=== PATIENT | female | born 1940 | race Caucasian/White ===

== ENCOUNTER 2016-12-22 14:23 | Outpatient (CLI) | payer MEDICARE, MEDICAID ==
[2016-12-22 13:38] LABS: BASOPHILS % (AUTO) 0.3 %; EOSINOPHILS # (AUTO) 0.4 10^3/uL (0.0-0.7); EOSINOPHILS % (AUTO) 5.5 %; HCT - HEMATOCRIT 35.2 % (37.0-47.0); HGB - HEMOGLOBIN 11.5 g/dL (12.0-16.0); LYMPHOCYTES # (AUTO) 1.9 10^3/uL (1.5-3.5); LYMPHOCYTES % (AUTO) 27.1 %; MEAN CORPUSCULAR HEMOGLOBIN 28.8 pg (27.0-31.0); MEAN CORPUSCULAR HGB CONC 32.7 g/dL (32.0-36.0); MEAN PLATELET VOLUME 11.1 fL (7.9-10.8); MONOCYTES # (AUTO) 0.6 10^3/uL (0.0-1.0); MONOCYTES % (AUTO) 8.3 %; NEUTROPHILS # (AUTO) 4.2 10^3/uL (1.5-6.6); NEUTROPHILS % (AUTO) 58.8 %; NUCLEATED RED BLOOD CELLS AUTO 0.1 /100WBC; RED CELL DISTRIBUTION WIDTH 13.8 % (12.0-15.0); UNCORRECTED WHITE BLOOD COUNT 7.1 x10^3/uL; WHITE BLOOD COUNT 7.1 x10^3/uL (4.8-10.8)
[2016-12-22 14:07] LABS: ALBUMIN/GLOBULIN RATIO 1.1 (1.0-2.2); BILIRUBIN,TOTAL 0.7 mg/dL (0.2-1.0); BUN - BLOOD UREA NITROGEN 13 mg/dL (6-20); CALCIUM 9.7 mg/dL (8.5-10.3); CARBON DIOXIDE - CO2 25 mmol/L (21-32); CHLORIDE 105 mmol/L (101-111); CHOL/HDL RATIO 4.7 (<4.4); CHOLESTEROL 201 mg/dL; CREATININE 1.3 mg/dL (0.4-1.0); GFR - MDRD 40 (>89); GLUCOSE 95 mg/dL (70-100); HDL CHOLESTEROL 43 mg/dL; POTASSIUM 4.4 mmol/L (3.5-5.0); SODIUM 138 mmol/L (135-145); TOTAL PROTEIN 7.4 g/dL (6.7-8.2); TRIGLYCERIDES 145 mg/dL; VLDL CHOLESTEROL 29 mg/dL
== END 2016-12-22 14:24 | disposition home or self-care (01) ==
LOC: LAB.R 14:23
PROVIDERS: ATTEND Internal Medicine
DX: E53.8 Deficiency of other specified B group vitamins (principal); J30.9 Allergic rhinitis, unspecified; M81.0 Age-related osteoporosis without current pathological fracture; E78.5 Hyperlipidemia, unspecified; R94.5 Abnormal results of liver function studies; I10 Essential (primary) hypertension
CPT/HCPCS: 80053; 80061; 84443; 85025

== ENCOUNTER → 2018-01-05 | Outpatient (CLI) | payer MEDICARE, MEDICAID ==
[2018-01-05 14:20] LABS: BASOPHILS # (AUTO) 0.1 10^3/uL (0.0-0.1); EOSINOPHILS # (AUTO) 0.3 10^3/uL (0.0-0.7); EOSINOPHILS % (AUTO) 4.7 %; HGB - HEMOGLOBIN 11.1 g/dL (12.0-16.0); LYMPHOCYTES # (AUTO) 1.3 10^3/uL (1.5-3.5); LYMPHOCYTES % (AUTO) 17.9 %; MEAN CORPUSCULAR HGB CONC 33.2 g/dL (32.0-36.0); MEAN CORPUSCULAR VOLUME 90.2 fL (81.0-99.0); MEAN PLATELET VOLUME 11.3 fL (7.9-10.8); MONOCYTES # (AUTO) 0.6 10^3/uL (0.0-1.0); MONOCYTES % (AUTO) 8.6 %; NEUTROPHILS % (AUTO) 67.8 %; PLT - PLATELET COUNT 222 10^3/uL (130-450); RED BLOOD COUNT 3.72 10^6/uL (4.20-5.40); RED CELL DISTRIBUTION WIDTH 14.1 % (12.0-15.0); WHITE BLOOD COUNT 7.4 x10^3/uL (4.8-10.8)
[2018-01-05 14:49] LABS: ALBUMIN 3.3 g/dL (3.2-5.5); ALBUMIN/GLOBULIN RATIO 0.9 (1.0-2.2); ALKALINE PHOSPHATASE 66 IU/L (42-121); ALT ALANINE AMINOTRANSFERASE 12 IU/L (10-60); AST ASPARTATE AMINOTRANSFERASE 19 IU/L (10-42); BUN - BLOOD UREA NITROGEN 17 mg/dL (6-20); CALCIUM 9.1 mg/dL (8.5-10.3); CARBON DIOXIDE - CO2 25 mmol/L (21-32); CHLORIDE 105 mmol/L (101-111); CHOLESTEROL 190 mg/dL; CREATININE 1.4 mg/dL (0.4-1.0); GFR - MDRD 37 (>89); GLUCOSE 100 mg/dL (70-100); HDL CHOLESTEROL 47 mg/dL; LDL CHOLESTEROL,CALCULATED 122 mg/dL; LDL/HDL RATIO 2.6 (<4.4); SODIUM 141 mmol/L (135-145); TOTAL PROTEIN 7.1 g/dL (6.7-8.2); VLDL CHOLESTEROL 21 mg/dL
== END ==
LOC: LAB.N 08:43
PROVIDERS: ATTEND Internal Medicine
DX: E53.8 Deficiency of other specified B group vitamins (principal); E78.5 Hyperlipidemia, unspecified; R94.5 Abnormal results of liver function studies
CPT/HCPCS: 36415; 80053; 80061; 83721; 84443; 85025

== ENCOUNTER 2018-01-24 10:14 | Outpatient (CLI) | payer MEDICARE, MEDICAID ==
--- NOTE | 2018-01-25 09:16 | Mammography Report ---
Reason: SCREENING MAMMO Procedure Date: 01/24/2018 Accession Number: [id number] / [id number] Procedure: MGN - Screening Mammo Dig Bilat CPT Code: FULL RESULT: EXAM: Screening Mammo Dig Bilat DATE: 01/24/2018 10:38 AM CLINICAL HISTORY: 77 year-old nulliparous female presents for screening. TECHNIQUE: Bilateral CC and MLO views were obtained. COMPARISON: 01/28/2016, 01/17/2014, 01/05/2014. FINDINGS: The breasts demonstrate scattered fibroglandular densities bilaterally. Typically benign vascular calcifications are identified bilaterally. No suspicious masses, clustered microcalcifications, or regions of architectural distortion are identified. IMPRESSION: Benign findings RECOMMENDATION: Routine annual screening unless otherwise clinically indicated. BIRADS CATEGORY 2: Benign findings STANDARD QUALIFYING STATEMENTS: 1. This examination was reviewed with the aid of Computer-Aided Detection (CAD). 2. A negative or benign imaging report should not delay biopsy if clinically suspicious findings are present. Consider surgical consultation if warranted. More than 5% of cancers are not identified by imaging. 3. Dense breasts may obscure an underlying neoplasm. 4. This examination was reviewed without the aid of 3D breast imaging (tomosynthesis).
== END 2018-01-24 10:15 | disposition home or self-care (01) ==
LOC: DI.N 10:14
PROVIDERS: ATTEND Internal Medicine
DX: Z12.31 Encounter for screening mammogram for malignant neoplasm of breast (principal)
CPT/HCPCS: 77067

== ENCOUNTER 2018-01-26 08:23 | Outpatient (CLI) | payer MEDICARE, MEDICAID ==
[2018-01-26 13:14] LABS: FERRITIN 21.6 ng/mL (11.0-306.8)
[2018-01-26 14:33] LABS: RED BLOOD COUNT 3.74 10^6/uL (4.20-5.40)
== END 2018-01-26 08:24 | disposition home or self-care (01) ==
LOC: LAB.N 08:23
PROVIDERS: ATTEND Internal Medicine
DX: D64.9 Anemia, unspecified (principal)
CPT/HCPCS: 36415; 82607; 82728; 83010; 85044; 86880

== ENCOUNTER 2020-07-30 11:05 | Outpatient (CLI) | payer MEDICARE, MEDICAID ==
--- NOTE | 2020-08-01 07:03 | Mammography Report ---
BILATERAL DIGITAL SCREENING MAMMOGRAM 3D/2D: 07/30/2020 CLINICAL: Routine screening. Comparison: 01/24/2018, 01/28/2016, 01/05/2014. There are scattered fibroglandular elements in both breasts. No significant masses, calcifications, or other findings are seen in either breast. IMPRESSION: NEGATIVE There is no mammographic evidence of malignancy. A 1 year screening mammogram is recommended. This exam was interpreted at Station ID: [id number]. NOTE: For mammograms, a report in lay terms will be sent to the patient. Approximately 15% of breast malignancies will not be visualized mammographically. In the management of a palpable breast mass, a negative mammogram must not discourage biopsy of a clinically suspicious lesion. Electronically Signed By: Gucci Davalos M.D. aty/:07/30/2020 14:22:57 ACR BI-RADS Category 1: Negative 3341F PARENCHYMAL PATTERN: (A) - The breast(s) demonstrate(s) scattered fibroglandular densities. BI-RADS CATEGORY: (1) - 1 RECOMMENDATION: (ANNUAL) - Recommend routine annual screening mammography. [id number] 1 year screening LATERALITY: (B)
== END 2020-07-30 11:06 | disposition home or self-care (01) ==
LOC: DI 11:05
DX: Z12.31 Encounter for screening mammogram for malignant neoplasm of breast (principal)

== ENCOUNTER 2020-08-08 12:18 | Inpatient (IN) | payer MEDICARE, MEDICAID ==
[2020-08-08] MEDS ORDERED: ASPIRIN CHEW 81 MG TABLET PO STA (13:00)
[2020-08-08] MEDS ORDERED: IOVERSOL 320 100 ML VIAL IVP ONE ×2 (13:08→14:37)
[2020-08-08 13:21] LABS: BASOPHILS # (AUTO) 0.1 10^3/uL (0.0-0.1); EOSINOPHILS # (AUTO) 0.2 10^3/uL (0.0-0.7); EOSINOPHILS % (AUTO) 2.5 %; HCT - HEMATOCRIT 30.8 % (37.0-47.0); HGB - HEMOGLOBIN 9.5 g/dL (12.0-16.0); LYMPHOCYTES # (AUTO) 1.4 10^3/uL (1.5-3.5); LYMPHOCYTES % (AUTO) 18.8 %; MEAN CORPUSCULAR HEMOGLOBIN 27.4 pg (27.0-31.0); MEAN CORPUSCULAR HGB CONC 30.8 g/dL (32.0-36.0); MEAN CORPUSCULAR VOLUME 88.8 fL (81.0-99.0); MONOCYTES # (AUTO) 0.7 10^3/uL (0.0-1.0); MONOCYTES % (AUTO) 9.2 %; NEUTROPHILS % (AUTO) 68.1 %; PLT - PLATELET COUNT 232 10^3/uL (130-450); RED BLOOD COUNT 3.47 10^6/uL (4.20-5.40); RED CELL DISTRIBUTION WIDTH 14.5 % (12.0-15.0); WHITE BLOOD COUNT 7.3 x10^3/uL (4.8-10.8)
[2020-08-08 13:32] LABS: ALBUMIN 3.8 g/dL (3.2-5.5); ALBUMIN/GLOBULIN RATIO 1.1 (1.0-2.2); BILIRUBIN,TOTAL 0.7 mg/dL (0.2-1.0); CALCIUM 9.7 mg/dL (8.5-10.3); CREATININE 1.4 mg/dL (0.4-1.0); POTASSIUM 3.5 mmol/L (3.5-5.0); TOTAL PROTEIN 7.4 g/dL (6.7-8.2)
--- NOTE | 2020-08-08 13:38 | ED Physician Documentation ---
History of Present Illness - Stated complaint Stated Complaint: SLURRED SPEACH,FALLS - Chief complaint Chief Complaint: Neuro - History obtained from History obtained from: Patient - Additonal information Additional information: 80-year-old woman With history of arthritis, ambulatory with a cane or a walker at home with home health services presents with left-sided weakness, slurred speech, and facial droop that her aide noticed yesterday. Her last seen normal time was Wednesday when an aide came in she was behaving at baseline without any neuro deficits. Patient has never had a known stroke in the past. She does state that she feels her left arm is weak and had a fall this morning without head trauma or LOC. Review of Systems Ten Systems: 10 systems reviewed and negative Constitutional: denies: Fever, Chills Neurologic: reports: Focal weakness, Difficulty speaking PD PAST MEDICAL HISTORY - Past Medical History Musculoskeletal: Osteoarthritis - Allergies Allergies/Adverse Reactions: Allergies Allergy/AdvReac Type Severity Reaction Status Date / Time No Known Drug Allergies Allergy Verified 08/08/20 12:43 PD ED PE NORMAL - Vitals Vital signs reviewed: Yes - General General: Alert and oriented X 3, No acute distress, Well developed/nourished - HEENT HEENT: Atraumatic, PERRL, EOMI - Neck Neck: Supple, no meningeal sign - Cardiac Cardiac: RRR - Respiratory Respiratory: No respiratory distress, Clear bilaterally - Abdomen Abdomen: Non tender, Non distended - Derm Derm: Normal color, Warm and dry - Extremities Extremities: No deformity - Neuro Neuro: Alert and oriented X 3, Other (LUE mild drift against gravity. R facial droop. mild dysarthria. cn 2-12 otherwise intact with normal cerebellar testing) - Psych Psych: Normal mood, Normal affect - Free text exam Free text exam: NIHSS on arrival 3 (4-1, 5a-1, 10-1) Results - Vitals Vitals: Vital Signs - 24 hr 08/08/20 08/08/20 12:34 13:06 Temperature 36.2 C L 36.2 C L Heart Rate 86 83 Respiratory 18 16 Rate Blood Pressure 148/75 H 178/89 H O2 Saturation 100 95 Oxygen O2 Source Room air - EKG (time done) 1327 Rate: Rate (enter#) (76) Rhythm: NSR Intervals: Normal AR, QRS normal Computer interpretation: Disagree with computer (not atrial fibrillation. patient has p waves and regular R-R interval. VERÓNICA not c/w inferior injury, given no reciprocal changes) - Labs Labs: Laboratory Tests 08/08/20 08/08/20 08/08/20 13:08 13:08 13:08 WBC 7.3 RBC 3.47 L Hgb 9.5 L Hct 30.8 L MCV 88.8 MCH 27.4 MCHC 30.8 L RDW 14.5 Plt Count 232 MPV 12.0 H Neut # (Auto) 5.0 Lymph # (Auto) 1.4 L Howell # (Auto) 0.7 Eos # (Auto) 0.2 Baso # (Auto) 0.1 Absolute Nucleated RBC 0.00 Nucleated RBC % 0.0 Sodium 138 Potassium 3.5 Chloride 103 Carbon Dioxide 26 Anion Gap 9.0 BUN 15 Creatinine 1.4 H Estimated GFR (MDRD) 36 L Glucose 105 H Calcium 9.7 Total Bilirubin 0.7 AST 20 ALT 12 Alkaline Phosphatase 72 Troponin I High Sens 16.1 H* Total Protein 7.4 Albumin 3.8 Globulin 3.6 Albumin/Globulin Ratio 1.1 Lipase 46 Nasal Adenovirus (PCR) Nasal B. parapertussis DNA (PCR) Nasal Coronavir 229E PCR Nasal Coronavir HKU1 PCR Nasal Coronavir NL63 PCR Nasal Coronavir OC43 PCR Nasal Enterovir/Rhinovir PCR Nasal Influenza B PCR Nasal Influenza A PCR Nasal Parainfluen 1 PCR Nasal Parainfluen 2 PCR Nasal Parainfluen 3 PCR Nasal Parainfluen 4 PCR Nasal RSV (PCR) Nasal B.pertussis DNA PCR Nasal C.pneumoniae (PCR) Eugenio Human Metapneumo PCR Nasal M.pneumoniae (PCR) Nasal SARS-CoV-2 (PCR) 08/08/20 13:45 WBC RBC Hgb Hct MCV MCH MCHC RDW Plt Count MPV Neut # (Auto) Lymph # (Auto) Howell # (Auto) Eos # (Auto) Baso # (Auto) Absolute Nucleated RBC Nucleated RBC % Sodium Potassium Chloride Carbon Dioxide Anion Gap BUN Creatinine Estimated GFR (MDRD) Glucose Calcium Total Bilirubin AST ALT Alkaline Phosphatase Troponin I High Sens Total Protein Albumin Globulin Albumin/Globulin Ratio Lipase Nasal Adenovirus (PCR) NOT DETECTED Nasal B. parapertussis DNA (PCR) NOT DETECTED Nasal Coronavir 229E PCR NOT DETECTED Nasal Coronavir HKU1 PCR NOT DETECTED Nasal Coronavir NL63 PCR NOT DETECTED Nasal Coronavir OC43 PCR NOT DETECTED Nasal Enterovir/Rhinovir PCR NOT DETECTED Nasal Influenza B PCR NOT DETECTED Nasal Influenza A PCR NOT DETECTED Nasal Parainfluen 1 PCR NOT DETECTED Nasal Parainfluen 2 PCR NOT DETECTED Nasal Parainfluen 3 PCR NOT DETECTED Nasal Parainfluen 4 PCR NOT DETECTED Nasal RSV (PCR) NOT DETECTED Nasal B.pertussis DNA PCR NOT DETECTED Nasal C.pneumoniae (PCR) NOT DETECTED Eugenio Human Metapneumo PCR NOT DETECTED Nasal M.pneumoniae (PCR) NOT DETECTED Nasal SARS-CoV-2 (PCR) NOT DETECTED PD MEDICAL DECISION MAKING - ED course ED course: Patient is outside the window for TPA or thrombectomy. Discussed with Dr. Ignacio for admission for stroke work-up. Departure - Departure Disposition: ED Place in Observation Clinical Impression: Stroke Condition: Stable
--- NOTE | 2020-08-08 13:48 | XRAY Report ---
PROCEDURE: Chest 1 View X-Ray INDICATIONS: Chest pain TECHNIQUE: One view of the chest was acquired. COMPARISON: None FINDINGS: Surgical changes and devices: None. Lungs and pleura: No pleural effusions or pneumothorax. Lungs are clear. Mediastinum: Mediastinal contours appear normal. Heart size is normal. Bones and chest wall: No suspicious bony lesions. Overlying soft tissues appear unremarkable. IMPRESSION: No acute cardiopulmonary process demonstrated radiographically. Reviewed by: Bruce Vigil MD on 08/08/2020 1:47 PM PDT Approved by: Bruce Vigil MD on 08/08/2020 1:47 PM PDT Station ID: [id number]
--- NOTE | 2020-08-08 14:41 | CT Report ---
PROCEDURE: ANGIO HEAD W/WO INDICATIONS: slurred speech, stroke workup CONTRAST: IV CONTRAST: Optiray 320 ml: 80 PO CONTRAST: *NO PO CONTRAST TECHNIQUE: Precontrast 4.5 mm thick angled axial sections acquired from the foramen magnum to the vertex. Afte r the administration of intravenous contrast, 1 mm thick sections acquired through the Elim Ira of [place] is. Postcontrast 4.5 mm thick sections then re-acquired from the foramen magnum to the vertex. 3-di mensional llofueh-chipdwkzx-bpfmumwcmf (MIP) and/or volume rendering reformats were acquired of the c entral intracranial vasculature. For radiation dose reduction, the following was used: automated ex posure control, adjustment of mA and/or kV according to patient size. COMPARISON: Correlation is made with the accompanying neck CT angiogram, 08/07/2020. FINDINGS: Image quality: Excellent. Anterior circulation: Intracranial internal carotid arteries are normal in size and flow. The flow within the paired anterior cerebral arteries is normal and symmetric. The flow within the middle cer ebral arteries is normal and symmetric. The anterior communicating artery is not well seen. No aneu rysms are seen. Posterior circulation: Visualized portions of the vertebral arteries demonstrate normal caliber. The basilar artery is considered to be at the upper limits of normal for size. The left vertebral artery is dominant to the right. Flow within the posterior cerebral arteries is normal and symmetric. No aneurysms are seen. CSF spaces: Ventricles are normal in size and shape. Basal cisterns are patent. No extra-axial flu id collections. Brain: No midline shift. No intracranial bleeds or masses. Liang-white matter interface appears int act. Skull and face: Calvarium and facial bones appear intact, without suspicious lesions. Sinuses: Visualized sinuses and mastoids are clear. IMPRESSION: Intracranial study within normal limits. No significant intracranial arterial abnormalities are seen. If there is strong clinical concern for a stroke, please consider a dedicated brain MRI for further e valuation (assuming that there is no contraindication to MRI). Reviewed by: Margarito Brooks MD on 08/08/2020 1:40 PM CORNEL Approved by: Margarito Brooks MD on 08/08/2020 1:40 PM CORNEL Station ID: [id number]
[2020-08-08 14:43] LABS: B. PARAPERTUSSIS- RESP PCR PAN NOT DETECTED; B. PERTUSSIS- RESP PCR PANEL NOT DETECTED; C. PNEUMONIAE- RESP PCR PANEL NOT DETECTED; CORONAVIRUS 229E-RESP PCR NOT DETECTED; CORONAVIRUS HKU1-RESP PCR NOT DETECTED; CORONAVIRUS NL63-RESP PCR NOT DETECTED; CORONAVIRUS OC43-RESP PCR NOT DETECTED; HUMAN METAPNEUMOVIRUS NOT DETECTED; INFLUENZA A- RESP PCR PANEL NOT DETECTED; INFLUENZA B - RESP PCR PANEL NOT DETECTED; M. PNEUMONIAE- RESP PCR PANEL NOT DETECTED; PARAINFLUENZA VIRUS 1 NOT DETECTED; PARAINFLUENZA VIRUS 2 NOT DETECTED; PARAINFLUENZA VIRUS 3 NOT DETECTED; PARAINFLUENZA VIRUS 4 NOT DETECTED; RHINOVIRUS/ENTEROVIRUS NOT DETECTED; RSV- RESP PCR PANEL NOT DETECTED; SARS-CoV-2 -RESP PCR PANEL NOT DETECTED
--- NOTE | 2020-08-08 14:45 | CT Report ---
PROCEDURE: ANGIO NECK W INDICATIONS: stroke (facial droop, dysarthria, LUE drft) CONTRAST: IV CONTRAST: Optiray 320 ml: 80 PO CONTRAST: *NO PO CONTRAST TECHNIQUE: After the administration of intravenous contrast, 1.5 mm axial sections acquired from the aortic arch to the [place] of [place]. Coronal 3-D maximum intensity projection (MIP) and/or volume rendering ref ormats were then performed. For radiation dose reduction, the following was used: automated exposur e control, adjustment of mA and/or kV according to patient size. COMPARISON: Correlation is made with the accompanying head CT angiogram, 08/08/2020. FINDINGS: Image quality: Excellent. Carotid system: The great vessels demonstrate a conventional anatomy as they arise from the aortic a rch. The aorta is mildly aneurysmal, with the superior ascending aorta measuring 4.1 cm transversely, with the proximal aortic arch measuring 3.5 cm. The origins of the common carotid arteries appear pa tent. The common carotid arteries demonstrate normal calibers and courses. The bifurcation regions appear normal bilaterally. The internal carotid arteries demonstrate normal caliber and course. Posterior circulation: The origins of the vertebral arteries appear patent. The more superior porti ons of the vertebral arteries demonstrate normal course and caliber. 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 Soft tissues: Visualized neck soft tissues demonstrate no suspicious abnormalities. The thyroid is normal in size and there are no incidental findings. Bones: No suspicious bony lesions. Visualized cervical spine appears normally aligned. Degenerati ve changes are seen, including moderate to severe C6-C7 joint space narrowing. IMPRESSION: No hemodynamically significant stenosis can be seen within the arteries of the neck. 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 Focal C6-C7 degenerative change. The estimate of stenosis included in the report of the imaging study was calculated using the NASCET method Reviewed by: Margarito Brooks MD on 08/08/2020 1:44 PM CORNEL Approved by: Margarito Brooks MD on 08/08/2020 1:44 PM CORNEL Station ID: [id number]
[2020-08-08] MEDS ORDERED: SODIUM CHLORIDE FLUSH 0.9% 10 ML SYRINGE IVP PRN (14:47)
--- NOTE | 2020-08-08 14:58 | HISTORY & PHYSICAL EXAMINATION ---
Chief Complaint - Chief Complaint Chief Complaint: left upper extremity weakness and left facial droop History of Present Illness - Admitted From Admitted From:: [facility] ED - History Obtained From Records Reviewed: yes History obtained from: patient - History of Present Illness HPI Comment/Other: The patient is currently very lethargic due to sedation with Ativan given for the purpose of completing MRI of the brain. As a result she is unable to provide a reliable history. According to the ED physician the patient presented with left-sided weakness, left facial droop and slurred speech. This was noticed by her aide yesterday. Her last time of known normal was Wednesday08/06/20. Normally she gets around using a walker or a cane. She also has home health service. She reported falling in the morning but did not hit her head or lose consciousness. In the ED work-up included a CT/CTA of the head and neck which was negative for any acute processes. She was presented for admission for further work-up for possible CVA. At bedside the patient has a left upper extremity weakness with at 3 out of 5 strength. She is awake but lethargic. She responds to her name. She also has appreciable left facial droop. History - Past Medical History Musculoskeletal: reports: Osteoarthritis - Past Surgical History Other past surgical history: History is limited due to lethargy from sedation unable. - Family & Social History Family History Comment/Other: Patient is currently unable to provide a reliable history due to lethargy - POLST Patient has POLST: No POLST Status: Full Code Meds/Allgy - Home Medications Home Medications: Ambulatory Orders Medication Instructions Recorded Confirmed Ca/D3/Mag/Zinc/Jocelin/Gato/Mgbor 1 tab PO QPM 08/09/20 08/09/20 [Caltrate 600-D3-Min Chew Tab] Ca/D3/Mag/Zinc/Jocelin/Gato/Mgbor 2 tab PO DAILY 08/09/20 08/09/20 [Caltrate 600-D3-Min Chew Tab] Cholecalciferol (Vitamin D3) 50 mcg PO DAILY 08/09/20 08/09/20 [Vitamin D3] Cyanocobalamin (Vitamin B-12) 1,000 mcg PO DAILY 08/09/20 08/09/20 [Vitamin B-12] Raloxifene [Evista] 60 mg PO DAILY 08/09/20 08/09/20 - Allergies Allergies/Adverse Reactions: Allergies Allergy/AdvReac Type Severity Reaction Status Date / Time No Known Drug Allergies Allergy Verified 08/08/20 12:43 Review of Systems - Constitutional Constitutional: reports: Weakness (left-sided). denies: Fatigue, Fever, Chills - Eyes Eyes: denies: Pain, Field loss, Vision loss - Ears, Nose & Throat Ears, Nose & Throat: denies: Ear pain, Sore throat - Cardiovascular Cariovascular: denies: Chest pain, Edema - Respiratory Respiratory: denies: Cough, Wheezing, SOB at rest, SOB with exertion - Gastrointestinal Gastrointestinal: denies: Abdominal pain, Abdominal distention, Constipation, Diarrhea, Nausea, Vomiting - Musculoskeletal Musculoskeletal: denies: Muscle pain, Back pain - Integumentary Integumentary: denies: Rash, Pruritis, Lesions - Neurological Neurological: reports: Focal weakness (left-sided left facial droop). denies: Headache - Psychiatric Psychiatric: denies: Depression, Anxiety - Endocrine Endocrine: denies: Polyuria, Polydypsia - Hematologic/Lymphatic Hematologic/Lymphatic: denies: Anemia, Bruising, Petechiae Prior Level of Functionality: Patient is dependent for activities of daily living. She ambulates using a walker or cane. She has home health service daily. Exam - Vital Signs Vital Signs: Vital Signs x48h Temp Pulse Resp BP Pulse Ox 08/08/20 13:06 36.2 C L 83 16 178/89 H 95 08/08/20 12:34 36.2 C L 86 18 148/75 H 100 - Physical Exam General Appearance: positive: No acute distress, Lethargic Eyes Bilateral: positive: PERRL, EOMI ENT: positive: Dry mucous membranes Neck: positive: No JVD, Trachea midline Respiratory: positive: Chest non-tender, No respiratory distress, Breath sounds nml. negative: Wheezes, Rales, Rhonchi Cardiovascular: positive: Regular rate & rhythm, No murmur Abdomen: positive: Non-tender, Nml bowel sounds, No distention. negative: Gua rding, Rebound Back: positive: Nml inspection Skin: positive: Color nml, No rash, Warm, Dry Extremities: positive: Non-tender, No pedal edema Neurologic/Psychiatric: positive: Mood/affect nml, Weakness (left upper extremity), Facial droop (left) Conclusion/Plan - Problem List (1) Left-sided weakness Conclusion/Plan: CVA suspected CT/CTA Head and neck was unremarkable MRI of brain w/o contrast pending 2D echo in the am HgA1c, Lipid panel PT/OT to evaluate and treat. Full dose aspirin given. Baby aspirin daily (2) Elevated troponin Conclusion/Plan: Trop 16.1 Will trend X 2 more (3) Acute kidney injury Conclusion/Plan: Cr 1.4, eGFR 36 Gentle IV hydration with normal saline at 100ml/hr Will recheck am labs - Lab Results Fish Bones: 08/11/20 05:00 08/11/20 05:00 Core Measures - Anticipated LOS I expect patient to be DC'd or transferred within 96 hours.: Yes - DVT/VTE - Prophylaxis VTE/DVT Device ordered at admit?: Yes VTE/DVT Prophylaxis med ordered at admit?: No - AMI - Statin at Admit Aspirin Prescribed on Admit: Yes
[2020-08-08] MEDS ORDERED: LORazepam 2 MG/ML VIAL IVP STA (15:20)
--- NOTE | 2020-08-08 16:38 | MRI Report ---
PROCEDURE: Brain W/O INDICATIONS: WEAKNESS, SLURRED SPEECH, STROKE SYMPTOMS TECHNIQUE: Noncontrast axial T1 spin echo, axial T2 fast spin echo, sagittal and axial FLAIR, coronal T2 fast sp in echo, axial gradient echo, axial diffusion and ADC through the brain. COMPARISON: None. FINDINGS: Image quality: Excellent. CSF Spaces: Basal cisterns are patent. No extra-axial fluid collections. Ventricles are normal in size and shape. Brain: No acute intracranial masses or hemorrhage. There are a few scattered low gradient echo signa l intensity foci within the right greater than left cerebral hemispheres as well as the left cerebell ar hemisphere. Liang/white matter interface is normal. Brainstem appears normal. Diffusion-weighted images demonstrate a 10 mm focus of elevated signal intensity within the right mid baca radiata whi ch demonstrates moderate FLAIR signal elevation and low ADC map signal. There is moderate diffuse cer ebral volume loss. There is a moderate to severe degree of patchy high FLAIR signal within the perive ntricular and subcortical white matter. Small chronic infarct within the right basal ganglia. No binder lockstitch kamlesh ischemic insults. Normal intravascular flow voids are present. Skull and face: Calvarium has normal marrow signal. Orbits appear normal. Sinuses: Sinuses and mastoids are clear. IMPRESSION: 1. Subacute right baca radiata infarct. No acute intracranial amount. 2. Small chronic right basal ganglia infarct. 3. Volume loss and small vessel ischemic disease. 4. 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 Reviewed by: Darlene Ochoa MD on 08/08/2020 4:37 PM PDT Approved by: Darlene Ochoa MD on 08/08/2020 4:37 PM PDT Station ID: [id number]
[2020-08-08] MEDS: SODIUM CHLORIDE 0.9% 1,000 ML IV SCH (16:58)
[2020-08-08] MEDS: SODIUM CHLORIDE FLUSH 0.9% 10 ML SYRINGE IVP SCH ×2 (17:01→23:27)
[2020-08-09] MEDS: SODIUM CHLORIDE 0.9% 1,000 ML IV SCH ×3 (02:44→19:50)
[2020-08-09 05:21] LABS: BASOPHILS # (AUTO) 0.1 10^3/uL (0.0-0.1); BASOPHILS % (AUTO) 1.2 %; EOSINOPHILS # (AUTO) 0.2 10^3/uL (0.0-0.7); EOSINOPHILS % (AUTO) 3.7 %; HCT - HEMATOCRIT 30.3 % (37.0-47.0); HGB - HEMOGLOBIN 9.5 g/dL (12.0-16.0); LYMPHOCYTES # (AUTO) 1.1 10^3/uL (1.5-3.5); LYMPHOCYTES % (AUTO) 18.5 %; MEAN CORPUSCULAR HEMOGLOBIN 27.8 pg (27.0-31.0); MEAN CORPUSCULAR HGB CONC 31.4 g/dL (32.0-36.0); MEAN CORPUSCULAR VOLUME 88.6 fL (81.0-99.0); MONOCYTES # (AUTO) 0.7 10^3/uL (0.0-1.0); MONOCYTES % (AUTO) 11.6 %; NEUTROPHILS # (AUTO) 3.8 10^3/uL (1.5-6.6); NEUTROPHILS % (AUTO) 64.8 %; PLT - PLATELET COUNT 208 10^3/uL (130-450); RED BLOOD COUNT 3.42 10^6/uL (4.20-5.40); RED CELL DISTRIBUTION WIDTH 14.5 % (12.0-15.0); WHITE BLOOD COUNT 5.9 x10^3/uL (4.8-10.8)
[2020-08-09 05:35] LABS: BUN - BLOOD UREA NITROGEN 11 mg/dL (6-20); CALCIUM 8.9 mg/dL (8.5-10.3); CARBON DIOXIDE - CO2 23 mmol/L (21-32); CHLORIDE 110 mmol/L (101-111); CHOL/HDL RATIO 4.3 (<4.4); CHOLESTEROL 200 mg/dL; CREATININE 1.3 mg/dL (0.4-1.0); GFR - MDRD 40 (>89); GLUCOSE 95 mg/dL (70-100); HDL CHOLESTEROL 46 mg/dL; LDL CHOLESTEROL,CALCULATED 137 mg/dL; POTASSIUM 3.4 mmol/L (3.5-5.0); SODIUM 141 mmol/L (135-145); TRIGLYCERIDES 87 mg/dL; VLDL CHOLESTEROL 17 mg/dL
[2020-08-09] MEDS ORDERED: POTASSIUM CHLORIDE 20 MEQ TABLET PO ONE (07:31)
[2020-08-09] MEDS ORDERED: hydrALAZINE INJ 20 MG/ML VIAL IVP PRN (07:34)
--- NOTE | 2020-08-09 07:58 | PROVIDER PROGRESS NOTE ---
Assessment/Plan - Problem List (1) Stroke Assessment/Plan: MRI of the brain done on 08/08/20 evening showed a subacute right baca radiator infarct. Small chronic right basal ganglia infarct noted as well. Volume loss and small vessel ischemic disease reported. Scattered small low-grade echo signal intensity foci, possibly indicating sequelae of amyloid angiopathy. The patient has appreciable left-sided weakness, left facial droop and some left-sided neglect. She received a full dose of aspirin yesterday. We will continue aspirin 81 mg p.o. daily and Plavix 75 mg p.o. daily. Patient will take Plavix for a total of 21 days. Atorvastatin 40 mg p.o. every afternoon ordered. Patient was seen by physical therapy and determined to need rehabilitation at the group home facility. credentialing coordinator is working to facilitate the process. (2) Left-sided weakness Assessment/Plan: Due to a subacute right baca radiator infarct. Treatment as noted above. (3) Elevated troponin Assessment/Plan: Troponin trend was 16.1 then 25.1 and 19.6. Patient does not have any chest pain. 2D echocardiogram showed normal left ventricular size. Mild concentric left ventricular hypertrophy. Overall left ventricular systolic function is lower limits of normal with an ejection fraction of 50 to 55%. Normal diastology. No regional wall motion abnormality seen. The right ventricle is normal size and function. Left atrial volume index is normal. Right atrial size is normal. Aortic valve is trileaflet. There was mild aortic valvular sclerosis. There was no evidence of aortic stenosis. There was mild aortic regurgitation. (4) Acute kidney injury Assessment/Plan: Creatinine is 1.3 with an estimated GFR of 40. Patient receiving gentle IV hydration. We will continue to monitor. (5) Hyperlipidemia Assessment/Plan: Total cholesterol was 200, LDL 137, HDL 46. Patient was started on atorvastatin 40 mg p.o. daily - Current Meds Current Meds: Current Medications Generic Name Dose Route Start Last Admin Trade Name Freq PRN Reason Stop Dose Admin Sodium Chloride 1,000 mls @ 100 mls/hr 08/08/20 15:00 08/09/20 02:44 Normal Saline 0.9% IV 100 mls/hr .Q10H DAVID Administration Sodium Chloride 10 ml 08/08/20 17:00 08/08/20 23:27 Sodium Chloride Flush 0.9% 10 Ml Syringe IVP Not Given 0100,0900,1700 DAVID - Lab Result Fish Bone Diagrams: 08/09/20 05:04 08/09/20 05:04 - Additional Planning My Orders: My Active Orders 08/08/20 14:47 Activity Orders [RC] Q2HR IO [RC] IOSHIFT Initiate Bowel Care Protocol [RC] .protocol Initiate Line Care Protocol [RC] QSHIFT Initiate Personal Care Protoco [RC] .protocol Telemetry- [RC] Q4HR Vital Signs [RC] 0800,1600,0000 Sodium Chloride Flush 0.9% [Normal Saline Flush 0.9%] 10 ml IVP PRN PRN Code Status [OTHERS] Routine Condition of Patient [OTHERS] Routine DVT Prophylaxis [OTHERS] Routine 08/08/20 14:50 Neuro Check [RC] QSHIFT SCDs [RC] QSHIFT Evaluate and Treat OT [OT] Routine Evaluate and Treat PT [PT] Routine 08/08/20 15:00 Sodium Chloride 0.9% [Normal Saline 0.9%] 1,000 ml IV 100 mls/hr 08/08/20 17:00 Sodium Chloride Flush 0.9% [Normal Saline Flush 0.9%] 10 ml IVP 0100,0900,1700 08/09/20 05:04 HEMOGLOBIN A1c% [CHEM] DAILYLAB 08/09/20 07:34 hydrALAZINE INJ [Apresoline Inj] 10 mg IVP Q4H PRN 08/09/20 09:00 Aspirin EC [Ecotrin] 81 mg PO DAILY Clopidogrel [Plavix] 75 mg PO DAILY 08/09/20 21:00 Atorvastatin [Lipitor] 40 mg PO QPM 08/10/20 05:00 BMP - BASIC METABOLIC PANEL [CHEM] DAILYLAB CBC - COMP BLD CT W/AUTO DIFF [HEME] DAILYLAB 08/11/20 05:00 BMP - BASIC METABOLIC PANEL [CHEM] DAILYLAB CBC - COMP BLD CT W/AUTO DIFF [HEME] DAILYLAB 08/12/20 05:00 BMP - BASIC METABOLIC PANEL [CHEM] DAILYLAB CBC - COMP BLD CT W/AUTO DIFF [HEME] DAILYLAB 08/13/20 05:00 BMP - BASIC METABOLIC PANEL [CHEM] DAILYLAB CBC - COMP BLD CT W/AUTO DIFF [HEME] DAILYLAB Subjective - Subjective Patient Reports: Other (Significant left sided weakness left facial droop and some left-sided neglect. She is AOx4. However she is also very impulsive.) Objective Vital Signs: Vital Signs - 24 hr 08/08/20 08/08/20 08/08/20 12:34 13:06 15:00 Temperature 36.2 C L 36.2 C L Heart Rate 86 83 78 Heart Rate [ Brachial] Respiratory 18 16 16 Rate Blood Pressure 148/75 H 178/89 H 176/88 H Blood Pressure [Left Brachial artery] O2 Saturation 100 95 08/08/20 08/08/20 08/08/20 16:15 16:45 20:38 Temperature 36.3 C L 36.3 C L Heart Rate 76 Heart Rate [ 78 75 Brachial] Respiratory 16 20 20 Rate Blood Pressure 180/90 H Blood Pressure 157/72 H 159/89 H [Left Brachial artery] O2 Saturation 96 96 95 08/09/20 08/09/20 00:29 04:39 Temperature 36.9 C 36.4 C L Heart Rate Heart Rate [ 81 83 Brachial] Respiratory 20 20 Rate Blood Pressure Blood Pressure 147/69 H 149/62 H [Left Brachial artery] O2 Saturation 97 96 Oxygen O2 Source Room air I&O (Last 24 Hrs): Intake and Output Totals x24h 08/07/20 08/08/20 08/09/20 23:59 23:59 23:59 Intake Total 50 1000 Output Total 550 Balance 50 450 General: Alert, Oriented x3, Cooperative, No acute distress HEENT: PERRLA, EOMI Neck: Supple, No JVD Neuro: Alert, Focal Deficits (Left-sided weakness, left facial droop, left-sided neglect), Oriented Times 3 Cardiovascular: Regular rate, No murmurs Respiratory: Chest non-tender, No respiratory distress, Breath sounds nml Abdomen: Normal bowel sounds, Soft Extremities: No clubbing, No edema, No tenderness/swelling Skin: No rashes, No breakdown, No significant lesion - Results Results: Laboratory Results WBC 5.9 x10^3/uL (4.8-10.8) 08/09/20 05:04 RBC 3.42 10^6/uL (4.20-5.40) L 08/09/20 05:04 Hgb 9.5 g/dL (12.0-16.0) L 08/09/20 05:04 Hct 30.3 % (37.0-47.0) L 08/09/20 05:04 MCV 88.6 fL (81.0-99.0) 08/09/20 05:04 MCH 27.8 pg (27.0-31.0) 08/09/20 05:04 MCHC 31.4 g/dL (32.0-36.0) L 08/09/20 05:04 RDW 14.5 % (12.0-15.0) 08/09/20 05:04 Plt Count 208 10^3/uL (130-450) 08/09/20 05:04 MPV 12.0 fL (7.9-10.8) H 08/09/20 05:04 Neut # (Auto) 3.8 10^3/uL (1.5-6.6) 08/09/20 05:04 Lymph # (Auto) 1.1 10^3/uL (1.5-3.5) L 08/09/20 05:04 [place] # (Auto) 0.7 10^3/uL (0.0-1.0) 08/09/20 05:04 Eos # (Auto) 0.2 10^3/uL (0.0-0.7) 08/09/20 05:04 Baso # (Auto) 0.1 10^3/uL (0.0-0.1) 08/09/20 05:04 Absolute Nucleated RBC 0.00 x10^3/uL 08/09/20 05:04 Nucleated RBC % 0.0 /100WBC 08/09/20 05:04 Sodium 141 mmol/L (135-145) 08/09/20 05:04 Potassium 3.4 mmol/L (3.5-5.0) L 08/09/20 05:04 Chloride 110 mmol/L (101-111) 08/09/20 05:04 Carbon Dioxide 23 mmol/L (21-32) 08/09/20 05:04 Anion Gap 8.0 (6-13) 08/09/20 05:04 BUN 11 mg/dL (6-20) 08/09/20 05:04 Creatinine 1.3 mg/dL (0.4-1.0) H 08/09/20 05:04 Estimated GFR (MDRD) 40 (>89) L 08/09/20 05:04 Glucose 95 mg/dL (70-100) 08/09/20 05:04 Calcium 8.9 mg/dL (8.5-10.3) 08/09/20 05:04 Total Bilirubin 0.7 mg/dL (0.2-1.0) 08/08/20 13:08 AST 20 IU/L (10-42) 08/08/20 13:08 ALT 12 IU/L (10-60) 08/08/20 13:08 Alkaline Phosphatase 72 IU/L (42-121) 08/08/20 13:08 Troponin I High Sens 19.6 ng/L (2.3-14.8) H* 08/09/20 05:04 Total Protein 7.4 g/dL (6.7-8.2) 08/08/20 13:08 Albumin 3.8 g/dL (3.2-5.5) 08/08/20 13:08 Globulin 3.6 g/dL (2.1-4.2) 08/08/20 13:08 Albumin/Globulin Ratio 1.1 (1.0-2.2) 08/08/20 13:08 Triglycerides 87 mg/dL (-149) 08/09/20 05:04 Cholesterol 200 mg/dL (-199) H 08/09/20 05:04 LDL Cholesterol, Calc 137 mg/dL (-129) H 08/09/20 05:04 VLDL Cholesterol 17 mg/dL 08/09/20 05:04 HDL Cholesterol 46 mg/dL (60-) L 08/09/20 05:04 LDL/HDL Ratio 3.0 (<4.4) 08/09/20 05:04 Cholesterol/HDL Ratio 4.3 (<4.4) 08/09/20 05:04 Lipase 46 U/L (22-51) 08/08/20 13:08 Nasal Adenovirus (PCR) NOT DETECTED 08/08/20 13:45 Nasal B. parapertussis DNA (PCR) NOT DETECTED 08/08/20 13:45 Nasal Coronavir 229E PCR NOT DETECTED 08/08/20 13:45 Nasal Coronavir HKU1 PCR NOT DETECTED 08/08/20 13:45 Nasal Coronavir NL63 PCR NOT DETECTED 08/08/20 13:45 Nasal Coronavir OC43 PCR NOT DETECTED 08/08/20 13:45 Nasal Enterovir/Rhinovir PCR NOT DETECTED 08/08/20 13:45 Nasal Influenza B PCR NOT DETECTED 08/08/20 13:45 Nasal Influenza A PCR NOT DETECTED 08/08/20 13:45 Nasal Parainfluen 1 PCR NOT DETECTED 08/08/20 13:45 Nasal Parainfluen 2 PCR NOT DETECTED 08/08/20 13:45 Nasal Parainfluen 3 PCR NOT DETECTED 08/08/20 13:45 Nasal Parainfluen 4 PCR NOT DETECTED 08/08/20 13:45 Nasal RSV (PCR) NOT DETECTED 08/08/20 13:45 Nasal B.pertussis DNA PCR NOT DETECTED 08/08/20 13:45 Nasal C.pneumoniae (PCR) NOT DETECTED 08/08/20 13:45 Eugenio Human Metapneumo PCR NOT DETECTED 08/08/20 13:45 Nasal M.pneumoniae (PCR) NOT DETECTED 08/08/20 13:45 Nasal SARS-CoV-2 (PCR) NOT DETECTED 08/08/20 13:45 ABX Reporting Has patient been on IV antibiotics over the past 48 hours?: No
[2020-08-09] MEDS: SODIUM CHLORIDE FLUSH 0.9% 10 ML SYRINGE IVP SCH ×3 (08:05→23:27)
[2020-08-09] MEDS: CLOPIDOGREL 75 MG TABLET PO SCH (08:05)
[2020-08-09] MEDS: ASPIRIN EC 81 MG TABLET PO SCH (08:05)
[2020-08-09 13:21] LABS: ESTIMATED AVERAGE GLUCOSE 108 mg/dL (70-100); HEMOGLOBIN A1c% 5.4 % (4.27-6.07)
--- NOTE | 2020-08-09 16:26 | PHARMACY PROGRESS NOTE ---
- Best Possible Medication History Admit Date and Time: 08/08/201939 Processed by: Pharmacy Medication History completed: Yes Patient Interview: Completed Secondary Source(s): Physician records, Pharmacy records, Insurance records (PATIENT UNSURE OF HOME MEDS. WAS ABLE TO CONFIRM SOME MEDICATIONS ) As the person ultimately responsible for medication therapy, providers are able to order a medication from an existing home medication list in [facility] via the "Reconcile Routine" prior to Confirmation of that medication by technician support engineer. Such practice is discouraged except when the physician, in their clinical judgment, deems that a medical need exists for a medication without regard to previous use.
[2020-08-09] MEDS: ATORVASTATIN 40 MG TABLET PO SCH (22:01)
[2020-08-10] MEDS: SODIUM CHLORIDE 0.9% 1,000 ML IV SCH (05:18)
[2020-08-10 06:16] LABS: BASOPHILS # (AUTO) 0.1 10^3/uL (0.0-0.1); BASOPHILS % (AUTO) 1.1 %; EOSINOPHILS # (AUTO) 0.4 10^3/uL (0.0-0.7); EOSINOPHILS % (AUTO) 5.8 %; HCT - HEMATOCRIT 31.7 % (37.0-47.0); HGB - HEMOGLOBIN 10.2 g/dL (12.0-16.0); LYMPHOCYTES # (AUTO) 1.6 10^3/uL (1.5-3.5); LYMPHOCYTES % (AUTO) 22.6 %; MEAN CORPUSCULAR HEMOGLOBIN 28.1 pg (27.0-31.0); MEAN CORPUSCULAR HGB CONC 32.2 g/dL (32.0-36.0); MEAN CORPUSCULAR VOLUME 87.3 fL (81.0-99.0); MEAN PLATELET VOLUME 12.3 fL (7.9-10.8); MONOCYTES # (AUTO) 0.7 10^3/uL (0.0-1.0); MONOCYTES % (AUTO) 9.8 %; NEUTROPHILS # (AUTO) 4.4 10^3/uL (1.5-6.6); NEUTROPHILS % (AUTO) 60.6 %; PLT - PLATELET COUNT 212 10^3/uL (130-450); RED BLOOD COUNT 3.63 10^6/uL (4.20-5.40); RED CELL DISTRIBUTION WIDTH 14.4 % (12.0-15.0); WHITE BLOOD COUNT 7.3 x10^3/uL (4.8-10.8)
[2020-08-10 06:29] LABS: CALCIUM 8.4 mg/dL (8.5-10.3); POTASSIUM 3.3 mmol/L (3.5-5.0)
[2020-08-10] MEDS: SODIUM CHLORIDE FLUSH 0.9% 10 ML SYRINGE IVP SCH ×2 (08:56→17:22)
[2020-08-10] MEDS: CLOPIDOGREL 75 MG TABLET PO SCH (08:56)
[2020-08-10] MEDS: ASPIRIN EC 81 MG TABLET PO SCH (08:56)
[2020-08-10] MEDS ORDERED: POTASSIUM CHLORIDE 20 MEQ TABLET PO STA (09:03)
--- NOTE | 2020-08-10 09:04 | PROVIDER PROGRESS NOTE ---
Assessment/Plan - Problem List (1) Stroke Assessment/Plan: Continue aspirin, Plavix, atorvastatin. Amlodipine 5 mg p.o. daily added for better blood pressure control. Hydralazine 10 mg IV every 6 hours as needed if systolic blood pressure greater than 160. Physical therapy continues to work with patient. Plan is for discharge to [facility] for rehab in 2 days. (2) Left-sided weakness Assessment/Plan: Due to a subacute right baca radiator infarct. Continue aspirin, Plavix, atorvastatin. Amlodipine 5 mg p.o. daily added for better blood pressure control. Hydralazine 10 mg IV every 6 hours as needed if systolic blood pressure greater than 160. Physical therapy continues to work with patient. Plan is for discharge to [facility] for rehab in 2 days. (3) Elevated troponin Assessment/Plan: Troponin trend was 16.1 then 25.1 and 19.6. Patient does not have any chest pain. 2D echocardiogram showed normal left ventricular size. Mild concentric left ventricular hypertrophy. Overall left ventricular systolic function is lower limits of normal with an ejection fraction of 50 to 55%. Normal diastology. No regional wall motion abnormality seen. The right ventricle is normal size and function. Left atrial volume index is normal. Right atrial size is normal. Aortic valve is trileaflet. There was mild aortic valvular sclerosis. There was no evidence of aortic stenosis. There was mild aortic regurgitation. (4) Acute kidney injury Assessment/Plan: Resolved (5) Hyperlipidemia Assessment/Plan: Atorvastatin 40 mg p.o. every afternoon. - Current Meds Current Meds: Current Medications Generic Name Dose Route Start Last Admin Trade Name Freq PRN Reason Stop Dose Admin Aspirin 81 mg 08/09/20 09:00 08/10/20 08:56 Aspirin Ec 81 Mg Tablet PO 81 mg DAILY DAVID Administration Atorvastatin Calcium 40 mg 08/09/20 21:00 08/09/20 22:01 Atorvastatin 40 Mg Tablet PO 40 mg QPM DAVID Administration Clopidogrel Bisulfate 75 mg 08/09/20 09:00 08/10/20 08:56 Clopidogrel 75 Mg Tablet PO 75 mg DAILY DAVID Administration Hydralazine HCl 10 mg 08/09/20 07:34 08/10/20 05:32 Hydralazine Inj 20 Mg/Ml Vial IVP 10 mg Q4H PRN Administration PER PHYSICIAN ORDER Sodium Chloride 10 ml 08/08/20 17:00 08/10/20 08:56 Sodium Chloride Flush 0.9% 10 Ml Syringe IVP Not Given 0100,0900,1700 DAVID - Lab Result Fish Bone Diagrams: 08/10/20 05:54 08/10/20 05:54 - Additional Planning My Orders: My Active Orders 08/09/20 09:00 Aspirin EC [Ecotrin] 81 mg PO DAILY Clopidogrel [Plavix] 75 mg PO DAILY 08/09/20 Dinner Full Liquid Diet [DIET] 08/09/20 21:00 Atorvastatin [Lipitor] 40 mg PO QPM 08/10/20 08:59 MAGNESIUM [CHEM] Routine 08/10/20 09:03 Potassium Chloride [K-Dur] 40 meq PO ONCE STA 08/11/20 05:00 BMP - BASIC METABOLIC PANEL [CHEM] DAILYLAB CBC - COMP BLD CT W/AUTO DIFF [HEME] DAILYLAB 08/12/20 05:00 BMP - BASIC METABOLIC PANEL [CHEM] DAILYLAB CBC - COMP BLD CT W/AUTO DIFF [HEME] DAILYLAB 08/13/20 05:00 BMP - BASIC METABOLIC PANEL [CHEM] DAILYLAB CBC - COMP BLD CT W/AUTO DIFF [HEME] DAILYLAB Subjective - Subjective Patient Reports: Other (Patient is awake alert and oriented x4. She was resting comfortably in bed at time of exam. She denied any complaints. Left-sided weakness is still appreciable. Rest of her history is unremarkable.) Objective Vital Signs: Vital Signs - 24 hr 08/09/20 08/09/20 08/09/20 11:05 11:20 12:50 Temperature Heart Rate [ 113 H Brachial] Heart Rate [ 61 61 Supine] Respiratory 18 Rate Blood Pressure Blood Pressure 142/83 H [Left Brachial artery] Blood Pressure [Right Brachial artery] Blood Pressure 153/68 H 153/68 H [Supine] O2 Saturation 98 08/09/20 08/09/20 08/10/20 16:00 20:51 00:29 Temperature 36.3 C L 36.9 C 36.7 C Heart Rate [ 77 74 83 Brachial] Heart Rate [ Supine] Respiratory 18 16 16 Rate Blood Pressure Blood Pressure 169/84 H 153/67 H 152/78 H [Left Brachial artery] Blood Pressure [Right Brachial artery] Blood Pressure [Supine] O2 Saturation 98 96 100 08/10/20 08/10/20 08/10/20 04:00 05:30 05:32 Temperature 36.5 C Heart Rate [ 82 Brachial] Heart Rate [ Supine] Respiratory 14 Rate Blood Pressure 180/78 H Blood Pressure 180/78 H [Left Brachial artery] Blood Pressure 142/110 H [Right Brachial artery] Blood Pressure [Supine] O2 Saturation 98 08/10/20 08/10/20 08/10/20 05:35 05:40 05:45 Temperature Heart Rate [ Brachial] Heart Rate [ Supine] Respiratory Rate Blood Pressure Blood Pressure 170/83 H 166/69 H 135/85 H [Left Brachial artery] Blood Pressure [Right Brachial artery] Blood Pressure [Supine] O2 Saturation 08/10/20 08/10/20 08/10/20 05:50 06:00 06:02 Temperature Heart Rate [ Brachial] Heart Rate [ Supine] Respiratory Rate Blood Pressure 132/79 H Blood Pressure 132/79 H 128/74 [Left Brachial artery] Blood Pressure [Right Brachial artery] Blood Pressure [Supine] O2 Saturation 08/10/20 08/10/20 08/10/20 06:15 06:30 07:43 Temperature 37.1 C Heart Rate [ 95 Brachial] Heart Rate [ Supine] Respiratory 18 Rate Blood Pressure Blood Pressure 146/67 H 149/82 H 147/73 H [Left Brachial artery] Blood Pressure [Right Brachial artery] Blood Pressure [Supine] O2 Saturation 95 Oxygen O2 Source Room air I&O (Last 24 Hrs): Intake and Output Totals x24h 08/08/20 08/09/20 08/10/20 23:59 23:59 23:59 Intake Total 50 3015 1346.667 Output Total 1650 Balance 50 1365 1346.667 General: Alert, Oriented x3, No acute distress HEENT: PERRLA, EOMI Neck: Supple, No JVD Neuro: Alert, Focal Deficits (left upper and lower extremity weakness. Most noticeable in left upper extremity), Oriented Times 3 Cardiovascular: Regular rate Respiratory: Chest non-tender, No respiratory distress, Breath sounds nml Abdomen: Normal bowel sounds, Soft Extremities: No clubbing, No cyanosis, No edema Skin: No rashes, No breakdown - Results Results: Laboratory Results WBC 7.3 x10^3/uL (4.8-10.8) 08/10/20 05:54 RBC 3.63 10^6/uL (4.20-5.40) L 08/10/20 05:54 Hgb 10.2 g/dL (12.0-16.0) L 08/10/20 05:54 Hct 31.7 % (37.0-47.0) L 08/10/20 05:54 MCV 87.3 fL (81.0-99.0) 08/10/20 05:54 MCH 28.1 pg (27.0-31.0) 08/10/20 05:54 MCHC 32.2 g/dL (32.0-36.0) 08/10/20 05:54 RDW 14.4 % (12.0-15.0) 08/10/20 05:54 Plt Count 212 10^3/uL (130-450) 08/10/20 05:54 MPV 12.3 fL (7.9-10.8) H 08/10/20 05:54 Neut # (Auto) 4.4 10^3/uL (1.5-6.6) 08/10/20 05:54 Lymph # (Auto) 1.6 10^3/uL (1.5-3.5) 08/10/20 05:54 [place] # (Auto) 0.7 10^3/uL (0.0-1.0) 08/10/20 05:54 Eos # (Auto) 0.4 10^3/uL (0.0-0.7) 08/10/20 05:54 Baso # (Auto) 0.1 10^3/uL (0.0-0.1) 08/10/20 05:54 Absolute Nucleated RBC 0.00 x10^3/uL 08/10/20 05:54 Nucleated RBC % 0.0 /100WBC 08/10/20 05:54 Sodium 142 mmol/L (135-145) 08/10/20 05:54 Potassium 3.3 mmol/L (3.5-5.0) L 08/10/20 05:54 Chloride 113 mmol/L (101-111) H 08/10/20 05:54 Carbon Dioxide 22 mmol/L (21-32) 08/10/20 05:54 Anion Gap 7.0 (6-13) 08/10/20 05:54 BUN 8 mg/dL (6-20) 08/10/20 05:54 Creatinine 1.0 mg/dL (0.4-1.0) 08/10/20 05:54 Estimated GFR (MDRD) 54 (>89) L 08/10/20 05:54 Glucose 94 mg/dL (70-100) 08/10/20 05:54 Estimat Average Glucose 108 mg/dL (70-100) H 08/09/20 05:04 Hemoglobin A1c % 5.4 % (4.27-6.07) 08/09/20 05:04 Calcium 8.4 mg/dL (8.5-10.3) L 08/10/20 05:54 Total Bilirubin 0.7 mg/dL (0.2-1.0) 08/08/20 13:08 AST 20 IU/L (10-42) 08/08/20 13:08 ALT 12 IU/L (10-60) 08/08/20 13:08 Alkaline Phosphatase 72 IU/L (42-121) 08/08/20 13:08 Troponin I High Sens 19.6 ng/L (2.3-14.8) H* 08/09/20 05:04 Total Protein 7.4 g/dL (6.7-8.2) 08/08/20 13:08 Albumin 3.8 g/dL (3.2-5.5) 08/08/20 13:08 Globulin 3.6 g/dL (2.1-4.2) 08/08/20 13:08 Albumin/Globulin Ratio 1.1 (1.0-2.2) 08/08/20 13:08 Triglycerides 87 mg/dL (-149) 08/09/20 05:04 Cholesterol 200 mg/dL (-199) H 08/09/20 05:04 LDL Cholesterol, Calc 137 mg/dL (-129) H 08/09/20 05:04 VLDL Cholesterol 17 mg/dL 08/09/20 05:04 HDL Cholesterol 46 mg/dL (60-) L 08/09/20 05:04 LDL/HDL Ratio 3.0 (<4.4) 08/09/20 05:04 Cholesterol/HDL Ratio 4.3 (<4.4) 08/09/20 05:04 Lipase 46 U/L (22-51) 08/08/20 13:08 Nasal Adenovirus (PCR) NOT DETECTED 08/08/20 13:45 Nasal B. parapertussis DNA (PCR) NOT DETECTED 08/08/20 13:45 Nasal Coronavir 229E PCR NOT DETECTED 08/08/20 13:45 Nasal Coronavir HKU1 PCR NOT DETECTED 08/08/20 13:45 Nasal Coronavir NL63 PCR NOT DETECTED 08/08/20 13:45 Nasal Coronavir OC43 PCR NOT DETECTED 08/08/20 13:45 Nasal Enterovir/Rhinovir PCR NOT DETECTED 08/08/20 13:45 Nasal Influenza B PCR NOT DETECTED 08/08/20 13:45 Nasal Influenza A PCR NOT DETECTED 08/08/20 13:45 Nasal Parainfluen 1 PCR NOT DETECTED 08/08/20 13:45 Nasal Parainfluen 2 PCR NOT DETECTED 08/08/20 13:45 Nasal Parainfluen 3 PCR NOT DETECTED 08/08/20 13:45 Nasal Parainfluen 4 PCR NOT DETECTED 08/08/20 13:45 Nasal RSV (PCR) NOT DETECTED 08/08/20 13:45 Nasal B.pertussis DNA PCR NOT DETECTED 08/08/20 13:45 Nasal C.pneumoniae (PCR) NOT DETECTED 08/08/20 13:45 Eugenio Human Metapneumo PCR NOT DETECTED 08/08/20 13:45 Nasal M.pneumoniae (PCR) NOT DETECTED 08/08/20 13:45 Nasal SARS-CoV-2 (PCR) NOT DETECTED 08/08/20 13:45 ABX Reporting Has patient been on IV antibiotics over the past 48 hours?: No
[2020-08-10] MEDS: amLODIPine 5 MG TABLET PO SCH (12:27)
[2020-08-10] MEDS: ATORVASTATIN 40 MG TABLET PO SCH (20:52)
[2020-08-11] MEDS: SODIUM CHLORIDE FLUSH 0.9% 10 ML SYRINGE IVP SCH ×3 (01:09→18:55)
[2020-08-11] MEDS ORDERED: ACETAMINOPHEN 325 MG TABLET PO PRN (04:46)
[2020-08-11 05:11] LABS: BASOPHILS # (AUTO) 0.1 10^3/uL (0.0-0.1); BASOPHILS % (AUTO) 0.9 %; EOSINOPHILS # (AUTO) 0.3 10^3/uL (0.0-0.7); EOSINOPHILS % (AUTO) 4.7 %; HCT - HEMATOCRIT 32.1 % (37.0-47.0); LYMPHOCYTES # (AUTO) 1.2 10^3/uL (1.5-3.5); LYMPHOCYTES % (AUTO) 17.5 %; MEAN CORPUSCULAR HEMOGLOBIN 27.6 pg (27.0-31.0); MEAN CORPUSCULAR HGB CONC 31.2 g/dL (32.0-36.0); MEAN CORPUSCULAR VOLUME 88.7 fL (81.0-99.0); MEAN PLATELET VOLUME 12.3 fL (7.9-10.8); MONOCYTES # (AUTO) 0.7 10^3/uL (0.0-1.0); NEUTROPHILS # (AUTO) 4.7 10^3/uL (1.5-6.6); NEUTROPHILS % (AUTO) 66.6 %; PLT - PLATELET COUNT 228 10^3/uL (130-450); RED BLOOD COUNT 3.62 10^6/uL (4.20-5.40); RED CELL DISTRIBUTION WIDTH 14.8 % (12.0-15.0)
[2020-08-11 05:24] LABS: CALCIUM 8.7 mg/dL (8.5-10.3); CREATININE 1.2 mg/dL (0.4-1.0); POTASSIUM 3.9 mmol/L (3.5-5.0)
--- NOTE | 2020-08-11 08:05 | PROVIDER PROGRESS NOTE ---
Assessment/Plan - Problem List (1) Stroke Assessment/Plan: Continue aspirin, Plavix, atorvastatin. Amlodipine 5 mg p.o. daily added for better blood pressure control. Hydralazine 10 mg IV every 6 hours as needed if systolic blood pressure greater than 160. Physical therapy continues to work with patient. Plan is for discharge to [facility] for rehab tomorrow. (2) Left-sided weakness Assessment/Plan: Due to a subacute right baca radiator infarct. Continue aspirin, Plavix, atorvastatin. Amlodipine 5 mg p.o. daily added for better blood pressure control. Hydralazine 10 mg IV every 6 hours as needed if systolic blood pressure greater than 160. Physical therapy continues to work with patient. Plan is for discharge to [facility] for rehab tomorrow. (3) Elevated troponin Assessment/Plan: Troponin trend was 16.1 then 25.1 and 19.6. Patient does not have any chest pain. 2D echocardiogram showed normal left ventricular size. Mild concentric left ventricular hypertrophy. Overall left ventricular systolic function is lower limits of normal with an ejection fraction of 50 to 55%. Normal diastology. No regional wall motion abnormality seen. The right ventricle is normal size and function. Left atrial volume index is normal. Right atrial size is normal. Aortic valve is trileaflet. There was mild aortic valvular sclerosis. There was no evidence of aortic stenosis. There was mild aortic regurgitation. (4) Acute kidney injury Assessment/Plan: Cr today 1.2. Will monitor (5) Hyperlipidemia Assessment/Plan: Atorvastatin 40 mg p.o. every afternoon. - Current Meds Current Meds: Current Medications Generic Name Dose Route Start Last Admin Trade Name Freq PRN Reason Stop Dose Admin Amlodipine Besylate 5 mg 08/10/20 12:00 08/10/20 12:27 Amlodipine 5 Mg Tablet PO 5 mg DAILY DAVID Administration Aspirin 81 mg 08/09/20 09:00 08/10/20 08:56 Aspirin Ec 81 Mg Tablet PO 81 mg DAILY DAVID Administration Atorvastatin Calcium 40 mg 08/09/20 21:00 08/10/20 20:52 Atorvastatin 40 Mg Tablet PO 40 mg QPM DAVID Administration Clopidogrel Bisulfate 75 mg 08/09/20 09:00 08/10/20 08:56 Clopidogrel 75 Mg Tablet PO 75 mg DAILY DAVID Administration Hydralazine HCl 10 mg 08/09/20 07:34 08/10/20 05:32 Hydralazine Inj 20 Mg/Ml Vial IVP 10 mg Q4H PRN Administration PER PHYSICIAN ORDER Sodium Chloride 10 ml 08/08/20 17:00 08/11/20 01:09 Sodium Chloride Flush 0.9% 10 Ml Syringe IVP 10 ml 0100,0900,1700 DAVID Administration - Lab Result Fish Bone Diagrams: 08/11/20 05:00 08/11/20 05:00 - Additional Planning My Orders: My Active Orders 08/10/20 12:00 amLODIPine [Norvasc] 5 mg PO DAILY 08/12/20 05:00 BMP - BASIC METABOLIC PANEL [CHEM] DAILYLAB CBC - COMP BLD CT W/AUTO DIFF [HEME] DAILYLAB 08/13/20 05:00 BMP - BASIC METABOLIC PANEL [CHEM] DAILYLAB CBC - COMP BLD CT W/AUTO DIFF [HEME] DAILYLAB Subjective - Subjective Patient Reports: Other (Patient is awake alert and oriented x4. She was resting comfortably in bed at time of exam. She denied any complaints. Left-sided weakness is still appreciable. Rest of her history is unremarkable.) Objective Vital Signs: Vital Signs - 24 hr 08/10/20 08/10/20 08/10/20 12:25 15:47 20:53 Temperature 36.2 C L 37.1 C 36.7 C Heart Rate [ 103 H 97 103 H Brachial] Respiratory 19 18 18 Rate Blood Pressure 139/97 H 150/72 H 138/64 H [Right Brachial artery] O2 Saturation 97 94 95 08/10/20 08/11/20 08/11/20 23:40 06:00 07:52 Temperature 36.5 C 37 C 37 C Heart Rate [ 107 H 97 95 Brachial] Respiratory 16 19 19 Rate Blood Pressure 148/75 H 143/83 H 169/77 H [Right Brachial artery] O2 Saturation 95 96 98 Oxygen O2 Source Room air I&O (Last 24 Hrs): Intake and Output Totals x24h 08/09/20 08/10/20 08/11/20 23:59 23:59 23:59 Intake Total 3015 2507.667 240 Output Total 1959 983 6095 Balance 1365 1607.667 -3160 General: Alert, Oriented x3, Cooperative, No acute distress HEENT: PERRLA, EOMI Neck: Supple, No JVD Neuro: Alert, Focal Deficits (left sided weakness), Oriented Times 3 Cardiovascular: Regular rate, No murmurs Respiratory: Chest non-tender, No respiratory distress, Breath sounds nml Abdomen: Normal bowel sounds, Soft, No tenderness, No masses Extremities: No clubbing, No cyanosis, No edema Skin: No rashes, No breakdown, No significant lesion - Results Results: Laboratory Results WBC 7.0 x10^3/uL (4.8-10.8) 08/11/20 05:00 RBC 3.62 10^6/uL (4.20-5.40) L 08/11/20 05:00 Hgb 10.0 g/dL (12.0-16.0) L 08/11/20 05:00 Hct 32.1 % (37.0-47.0) L 08/11/20 05:00 MCV 88.7 fL (81.0-99.0) 08/11/20 05:00 MCH 27.6 pg (27.0-31.0) 08/11/20 05:00 MCHC 31.2 g/dL (32.0-36.0) L 08/11/20 05:00 RDW 14.8 % (12.0-15.0) 08/11/20 05:00 Plt Count 228 10^3/uL (130-450) 08/11/20 05:00 MPV 12.3 fL (7.9-10.8) H 08/11/20 05:00 Neut # (Auto) 4.7 10^3/uL (1.5-6.6) 08/11/20 05:00 Lymph # (Auto) 1.2 10^3/uL (1.5-3.5) L 08/11/20 05:00 [place] # (Auto) 0.7 10^3/uL (0.0-1.0) 08/11/20 05:00 Eos # (Auto) 0.3 10^3/uL (0.0-0.7) 08/11/20 05:00 Baso # (Auto) 0.1 10^3/uL (0.0-0.1) 08/11/20 05:00 Absolute Nucleated RBC 0.00 x10^3/uL 08/11/20 05:00 Nucleated RBC % 0.0 /100WBC 08/11/20 05:00 Sodium 138 mmol/L (135-145) 08/11/20 05:00 Potassium 3.9 mmol/L (3.5-5.0) 08/11/20 05:00 Chloride 110 mmol/L (101-111) 08/11/20 05:00 Carbon Dioxide 19 mmol/L (21-32) L 08/11/20 05:00 Anion Gap 9.0 (6-13) 08/11/20 05:00 BUN 8 mg/dL (6-20) 08/11/20 05:00 Creatinine 1.2 mg/dL (0.4-1.0) H 08/11/20 05:00 Estimated GFR (MDRD) 43 (>89) L 08/11/20 05:00 Glucose 123 mg/dL (70-100) H 08/11/20 05:00 Estimat Average Glucose 108 mg/dL (70-100) H 08/09/20 05:04 Hemoglobin A1c % 5.4 % (4.27-6.07) 08/09/20 05:04 Calcium 8.7 mg/dL (8.5-10.3) 08/11/20 05:00 Magnesium 2.1 mg/dL (1.7-2.8) 08/10/20 06:10 Total Bilirubin 0.7 mg/dL (0.2-1.0) 08/08/20 13:08 AST 20 IU/L (10-42) 08/08/20 13:08 ALT 12 IU/L (10-60) 08/08/20 13:08 Alkaline Phosphatase 72 IU/L (42-121) 08/08/20 13:08 Troponin I High Sens 19.6 ng/L (2.3-14.8) H* 08/09/20 05:04 Total Protein 7.4 g/dL (6.7-8.2) 08/08/20 13:08 Albumin 3.8 g/dL (3.2-5.5) 08/08/20 13:08 Globulin 3.6 g/dL (2.1-4.2) 08/08/20 13:08 Albumin/Globulin Ratio 1.1 (1.0-2.2) 08/08/20 13:08 Triglycerides 87 mg/dL (-149) 08/09/20 05:04 Cholesterol 200 mg/dL (-199) H 08/09/20 05:04 LDL Cholesterol, Calc 137 mg/dL (-129) H 08/09/20 05:04 VLDL Cholesterol 17 mg/dL 08/09/20 05:04 HDL Cholesterol 46 mg/dL (60-) L 08/09/20 05:04 LDL/HDL Ratio 3.0 (<4.4) 08/09/20 05:04 Cholesterol/HDL Ratio 4.3 (<4.4) 08/09/20 05:04 Lipase 46 U/L (22-51) 08/08/20 13:08 Nasal Adenovirus (PCR) NOT DETECTED 08/08/20 13:45 Nasal B. parapertussis DNA (PCR) NOT DETECTED 08/08/20 13:45 Nasal Coronavir 229E PCR NOT DETECTED 08/08/20 13:45 Nasal Coronavir HKU1 PCR NOT DETECTED 08/08/20 13:45 Nasal Coronavir NL63 PCR NOT DETECTED 08/08/20 13:45 Nasal Coronavir OC43 PCR NOT DETECTED 08/08/20 13:45 Nasal Enterovir/Rhinovir PCR NOT DETECTED 08/08/20 13:45 Nasal Influenza B PCR NOT DETECTED 08/08/20 13:45 Nasal Influenza A PCR NOT DETECTED 08/08/20 13:45 Nasal Parainfluen 1 PCR NOT DETECTED 08/08/20 13:45 Nasal Parainfluen 2 PCR NOT DETECTED 08/08/20 13:45 Nasal Parainfluen 3 PCR NOT DETECTED 08/08/20 13:45 Nasal Parainfluen 4 PCR NOT DETECTED 08/08/20 13:45 Nasal RSV (PCR) NOT DETECTED 08/08/20 13:45 Nasal B.pertussis DNA PCR NOT DETECTED 08/08/20 13:45 Nasal C.pneumoniae (PCR) NOT DETECTED 08/08/20 13:45 Eugenio Human Metapneumo PCR NOT DETECTED 08/08/20 13:45 Nasal M.pneumoniae (PCR) NOT DETECTED 08/08/20 13:45 Nasal SARS-CoV-2 (PCR) NOT DETECTED 08/08/20 13:45 ABX Reporting Has patient been on IV antibiotics over the past 48 hours?: No
[2020-08-11] MEDS: CLOPIDOGREL 75 MG TABLET PO SCH (08:15)
[2020-08-11] MEDS: ASPIRIN EC 81 MG TABLET PO SCH (08:15)
[2020-08-11] MEDS: amLODIPine 5 MG TABLET PO SCH (08:15)
[2020-08-11] MEDS: ATORVASTATIN 40 MG TABLET PO SCH (20:45)
[2020-08-11] MEDS ORDERED: diltiaZEM INJ 5 MG/ML VIAL IVP ONE (23:22)
[2020-08-12 05:20] LABS: BASOPHILS # (AUTO) 0.1 10^3/uL (0.0-0.1); BASOPHILS % (AUTO) 0.9 %; EOSINOPHILS # (AUTO) 0.4 10^3/uL (0.0-0.7); EOSINOPHILS % (AUTO) 4.9 %; HCT - HEMATOCRIT 32.2 % (37.0-47.0); HGB - HEMOGLOBIN 10.1 g/dL (12.0-16.0); LYMPHOCYTES # (AUTO) 1.6 10^3/uL (1.5-3.5); LYMPHOCYTES % (AUTO) 20.6 %; MEAN CORPUSCULAR HEMOGLOBIN 27.8 pg (27.0-31.0); MEAN CORPUSCULAR HGB CONC 31.4 g/dL (32.0-36.0); MEAN CORPUSCULAR VOLUME 88.7 fL (81.0-99.0); MEAN PLATELET VOLUME 12.3 fL (7.9-10.8); MONOCYTES # (AUTO) 0.8 10^3/uL (0.0-1.0); MONOCYTES % (AUTO) 10.4 %; NEUTROPHILS # (AUTO) 4.8 10^3/uL (1.5-6.6); NEUTROPHILS % (AUTO) 62.9 %; PLT - PLATELET COUNT 238 10^3/uL (130-450); RED BLOOD COUNT 3.63 10^6/uL (4.20-5.40); RED CELL DISTRIBUTION WIDTH 14.9 % (12.0-15.0); WHITE BLOOD COUNT 7.6 x10^3/uL (4.8-10.8)
[2020-08-12 05:30] LABS: CALCIUM 8.9 mg/dL (8.5-10.3); CREATININE 1.4 mg/dL (0.4-1.0); POTASSIUM 3.9 mmol/L (3.5-5.0)
[2020-08-12] MEDS ORDERED: SODIUM CHLORIDE 0.9% 500 ML IV ONE (08:21)
[2020-08-12] MEDS: ASPIRIN EC 81 MG TABLET PO SCH (08:46)
[2020-08-12] MEDS: CLOPIDOGREL 75 MG TABLET PO SCH (08:46)
[2020-08-12] MEDS: SODIUM CHLORIDE FLUSH 0.9% 10 ML SYRINGE IVP SCH ×2 (08:47)
[2020-08-12] MEDS ORDERED: diltiaZEM CD 120 MG CAPSULE PO SCH (09:00)
--- NOTE | 2020-08-12 11:23 | DISCHARGE SUMMARY ---
Discharge Summary Admit Date: 08/08/20 Discharge Date: 08/12/20 Discharging Provider: Sheila Ignacio Primary Care Provider: Altagracia Zazueta Condition at Discharge: Stable Discharge Disposition: SNF DC/Xfer Discharge [facility] Name: [facility] - DIAGNOSES Admission Diagnoses: Left-sided weakness Elevated troponin Acute kidney injury Discharge Diagnoses with Status of Each Condition: Stroke: Subacute. Stable. Patient being discharged to SNF for rehab Left-sided weakness: Acute on chronic. Slight improvement. Patient being discharged to SNF for rehab. Elevated troponin: Mild. Stable. Acute kidney injury: Stable. Primary care physician to check labs in a week. Hyperlipidemia. Stable. Atorvastatin 40mg po daily started - HPI History of Present Illness: The patient is currently very lethargic due to sedation with Ativan given for the purpose of completing MRI of the brain. As a result she is unable to provide a reliable history. According to the ED physician the patient presented with left-sided weakness, left facial droop and slurred speech. This was noticed by her aide yesterday. Her last time of known normal was Wednesday08/06/20. Normally she gets around using a walker or a cane. She also has home health service. She reported falling in the morning but did not hit her head or lose consciousness. In the ED work-up included a CT/CTA of the head and neck which was negative for any acute processes. She was presented for admission for further work-up for possible CVA. At bedside the patient has a left upper extremity weakness with at 3 out of 5 strength. She is awake but lethargic. She responds to her name. She also has appreciable left facial droop. - HOSPITAL COURSE Hospital Course: The following day after admission the patient's left-sided weakness appeared significant. She also had noticeable left facial droop and some left-sided neglect. MRI of the brain done on 08/08/20 evening showed a subacute right baca radiator infarct. Small chronic right basal ganglia infarct noted as well. Volume loss and small vessel ischemic disease reported. Scattered small low-grade echo signal intensity foci, possibly indicating sequelae of amyloid angiopathy. On 08/10/20 the patient's mental status and neurological status had improved significantly. The mild left-sided neglect noticed the previous day was not readily apparent. However she still had some difficulties doing [id number] test with her left hand and her muscle strength was 3 out of 5 in the upper extremity of the left side. She was maintained on the baby aspirin daily and was started on Plavix 75 mg p.o. daily. She is to take Plavix for a total of 21 days and the last dose will be on 08/30/20. She had 2D echocardiogram which showed normal left ventricular size. Mild concentric left ventricular hypertrophy. Overall left ventricular systolic function is lower limits of normal with an ejection fraction of 50 to 55%. Normal diastology. No regional wall motion abnormality seen. The right ventricle is normal size and function. Left atrial volume index is normal. Right atrial size is normal. Aortic valve is trileaflet. There was mild aortic valvular sclerosis. There was no evidence of aortic stenosis. There was mild aortic regurgitation. Her blood pressure was elevated during her hospital stay so she was placed on diltiazem CD 120 mg p.o. daily which she is expected to take indefinitely. Her initial creatinine was 1.3. It improved to 1.0 but then subsequently was again elevated to 1.4. Anticipating this to improve subsequently with adequate IV hydration. It is expected that her primary care physician will check a BMP to monitor her renal function in 7 to 10 days. The patient may also benefit from a follow-up appointment with an waste handling technician and or an hospital supervisor. She has some difficulties scanning all the way to the left and the right with her eyes. She is being discharged to [facility] for rehab in stable condition. - ALLERGIES Allergies/Adverse Reactions: Allergies Allergy/AdvReac Type Severity Reaction Status Date / Time No Known Drug Allergies Allergy Verified 08/08/20 12:43 - MEDICATIONS Home Medications: Ambulatory Orders Medication Instructions Recorded Confirmed Ca/D3/Mag/Zinc/Jocelin/Gato/Mgbor 1 tab PO QPM 08/09/20 08/09/20 [Caltrate 600-D3-Min Chew Tab] Ca/D3/Mag/Zinc/Jocelin/Gato/Mgbor 2 tab PO DAILY 08/09/20 08/09/20 [Caltrate 600-D3-Min Chew Tab] Cholecalciferol (Vitamin D3) 50 mcg PO DAILY 08/09/20 08/09/20 [Vitamin D3] Cyanocobalamin (Vitamin B-12) 1,000 mcg PO DAILY 08/09/20 08/09/20 [Vitamin B-12] Raloxifene [Evista] 60 mg PO DAILY 08/09/20 08/09/20 Aspirin EC [Ecotrin] 81 mg PO DAILY 30 Days #30 tablet 08/12/20 Atorvastatin [Lipitor] 40 mg PO QPM 30 Days #30 tablet 08/12/20 Clopidogrel [Plavix] 75 mg PO DAILY 17 Days #17 tablet 08/12/20 diltiaZEM CD [Cardizem Cd] 120 mg PO DAILY 30 Days #30 tab 08/12/20 - PHYSICAL EXAM AT DISCHARGE General Appearance: positive: No acute distress, Alert Eyes Bilateral: positive: PERRL, EOMI ENT: positive: No signs of dehydration Neck: positive: No JVD, Trachea midline Respiratory: positive: Chest non-tender, No respiratory distress, Breath sounds nml. negative: Wheezes, Rales, Rhonchi Cardiovascular: positive: Regular rate & rhythm Abdomen: positive: Non-tender, No organomegaly, Nml bowel sounds, No distention. negative: Guarding, Rebound Back: positive: Nml inspection Skin: positive: Color nml, No rash, Warm, Dry Extremities: positive: Non-tender, Nml appearance, No pedal edema Neurologic/Psychiatric: positive: Oriented x3, Mood/affect nml, Other (Patient has mild left upper and lower extremity weakness.) - LABS Result Diagrams: 08/12/20 05:00 08/12/20 05:00 - TIME SPENT Time Spent in Discharge (Minutes): 25
--- NOTE | 2020-08-12 11:26 | Discharge Plan ---
Discharge Plan Problem Reviewed?: Yes Disposition: [facility] DC/Xfer Condition: Stable Prescriptions: diltiaZEM CD [Cardizem Cd] 120 mg PO DAILY 30 Days #30 tab Aspirin EC [Ecotrin] 81 mg PO DAILY 30 Days #30 tablet Atorvastatin [Lipitor] 40 mg PO QPM 30 Days #30 tablet Clopidogrel [Plavix] 75 mg PO DAILY 17 Days #17 tablet Diet: Soft Activity Restrictions: Per Therapy rec Assistance Devices: Walker Health Concerns: You were admitted on 08/08/20 with left-sided weakness, left facial droop and slurred speech. 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 Your symptoms improved slightly during your hospital stay but you still have significant residual left-sided weakness. You were seen by physical therapy and it was determined that you could benefit from rehabilitation. Consequently you are being discharged to [facility] where you will work with therapy to improve your strength with eventual plans to get you back to your regular residence. You are to continue taking a baby aspirin daily. You were also prescribed Plavix 75 mg daily. You are to take this for a total of 21 days which with and on 08/30/20. You were started on diltiazem CD 120 mg p.o. daily for hypertension which you are expected to continue taking. You were also started on Atorvastatin 40 mg p.o. every afternoon which you are to continue taking indefinitely. You are to follow-up with your primary care physician within 7 days. Is expected that you would have an eventual referral to neurology by her primary care physician. This was explained to you and you expressed understanding and are in agreement with the plan. Plan of Treatment: You were admitted on 08/08/20 with left-sided weakness, left facial droop and slurred speech. 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 Your symptoms improved slightly during your hospital stay but you still have significant residual left-sided weakness. You were seen by physical therapy and it was determined that you could benefit from rehabilitation. Consequently you are being discharged to [facility] where you will work with therapy to improve your strength with eventual plans to get you back to your regular residence. You are to continue taking a baby aspirin daily. You were also prescribed Plavix 75 mg daily. You are to take this for a total of 21 days which with and on 08/30/20. You were started on diltiazem CD 120 mg p.o. daily for hypertension which you are expected to continue taking. You were also started on Atorvastatin 40 mg p.o. every afternoon which you are to continue taking indefinitely. You are to follow-up with your primary care physician within 7 days. Is expected that you would have an eventual referral to neurology by her primary care physician. This was explained to you and you expressed understanding and are in agreement with the plan. Care Goals: You were admitted on 08/08/20 with left-sided weakness, left facial droop and slurred speech. 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 Your symptoms improved slightly during your hospital stay but you still have significant residual left-sided weakness. You were seen by physical therapy and it was determined that you could benefit from rehabilitation. Consequently you are being discharged to [facility] where you will work with therapy to improve your strength with eventual plans to get you back to your regular residence. You are to continue taking a baby aspirin daily. You were also prescribed Plavix 75 mg daily. You are to take this for a total of 21 days which with and on 08/30/20. You were started on diltiazem CD 120 mg p.o. daily for hypertension which you are expected to continue taking. You were also started on Atorvastatin 40 mg p.o. every afternoon which you are to continue taking indefinitely. You are to follow-up with your primary care physician within 7 days. Is expected that you would have an eventual referral to neurology by her primary care physician. This was explained to you and you expressed understanding and are in agreement with the plan. Assessment: You were admitted on 08/08/20 with left-sided weakness, left facial droop and slurred speech. 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 Your symptoms improved slightly during your hospital stay but you still have significant residual left-sided weakness. You were seen by physical therapy and it was determined that you could benefit from rehabilitation. Consequently you are being discharged to [facility] where you will work with therapy to improve your strength with eventual plans to get you back to your regular residence. You are to continue taking a baby aspirin daily. You were also prescribed Plavix 75 mg daily. You are to take this for a total of 21 days which with and on 08/30/20. You were started on diltiazem CD 120 mg p.o. daily for hypertension which you are expected to continue taking. You were also started on Atorvastatin 40 mg p.o. every afternoon which you are to continue taking indefinitely. You are to follow-up with your primary care physician within 7 days. Is expected that you would have an eventual referral to neurology by her primary care physician. This was explained to you and you expressed understanding and are in agreement with the plan. No Smoking: If you smoke, Please STOP! Call for help. Follow-up with: Altagracia Zazueta PA-C [Primary Care Provider] -
[2020-08-12] MEDS ORDERED: diltiaZEM INJ 5 MG/ML VIAL IVP ONE (11:32)
[2020-08-12 11:40] VITALS: BP 132/68
[2020-08-12 13:15] LABS: B. PARAPERTUSSIS- RESP PCR PAN NOT DETECTED; B. PERTUSSIS- RESP PCR PANEL NOT DETECTED; C. PNEUMONIAE- RESP PCR PANEL NOT DETECTED; CORONAVIRUS 229E-RESP PCR NOT DETECTED; CORONAVIRUS HKU1-RESP PCR NOT DETECTED; CORONAVIRUS NL63-RESP PCR NOT DETECTED; CORONAVIRUS OC43-RESP PCR NOT DETECTED; HUMAN METAPNEUMOVIRUS NOT DETECTED; INFLUENZA A- RESP PCR PANEL NOT DETECTED; INFLUENZA B - RESP PCR PANEL NOT DETECTED; M. PNEUMONIAE- RESP PCR PANEL NOT DETECTED; PARAINFLUENZA VIRUS 1 NOT DETECTED; PARAINFLUENZA VIRUS 2 NOT DETECTED; PARAINFLUENZA VIRUS 3 NOT DETECTED; PARAINFLUENZA VIRUS 4 NOT DETECTED; RHINOVIRUS/ENTEROVIRUS NOT DETECTED; RSV- RESP PCR PANEL NOT DETECTED; SARS-CoV-2 -RESP PCR PANEL NOT DETECTED
--- NOTE | 2020-08-12 14:02 | Discharge Plan ---
"Discharge Plan for SNF / [facility] - Discharge Plan And Transition Orders Problem Reviewed?: Yes Disposition: SNF DC/Xfer Condition: Stable Allergies and Adverse Reactions: Allergies Allergy/AdvReac Type Severity Reaction Status Date / Time No Known Drug Allergies Allergy Verified 08/08/20 12:43 Health Concerns: You were admitted on 08/08/20 with left-sided weakness, left facial droop and slurred speech. 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 Your symptoms improved slightly during your hospital stay but you still have significant residual left-sided weakness. You were seen by physical therapy and it was determined that you could benefit from rehabilitation. Consequently you are being discharged to [facility] where you will work with therapy to improve your strength with eventual plans to get you back to your regular residence. You are to continue taking a baby aspirin daily. You were also prescribed Plavix 75 mg daily. You are to take this for a total of 21 days which with and on 08/30/20. You were started on diltiazem CD 120 mg p.o. daily for hypertension which you are expected to continue taking. You were also started on Atorvastatin 40 mg p.o. every afternoon which you are to continue taking indefinitely. You are to follow-up with your primary care physician within 7 days. Is expected that you would have an eventual referral to neurology by her primary care physician. This was explained to you and you expressed understanding and are in agreement with the plan. Plan of Treatment: You were admitted on 08/08/20 with left-sided weakness, left facial droop and slurred speech. 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 Your symptoms improved slightly during your hospital stay but you still have significant residual left-sided weakness. You were seen by physical therapy and it was determined that you could benefit from rehabilitation. Consequently you are being discharged to [facility] where you will work with therapy to improve your strength with eventual plans to get you back to your regular residence. You are to continue taking a baby aspirin daily. You were also prescribed Plavix 75 mg daily. You are to take this for a total of 21 days which with and on 08/30/20. You were started on diltiazem CD 120 mg p.o. daily for hypertension which you are expected to continue taking. You were also started on Atorvastatin 40 mg p.o. every afternoon which you are to continue taking indefinitely. You are to follow-up with your primary care physician within 7 days. Is expected that you would have an eventual referral to neurology by her primary care physician. This was explained to you and you expressed understanding and are in agreement with the plan. Care Goals: You were admitted on 08/08/20 with left-sided weakness, left facial droop and slurred speech. 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 Your symptoms improved slightly during your hospital stay but you still have significant residual left-sided weakness. You were seen by physical therapy and it was determined that you could benefit from rehabilitation. Consequently you are being discharged to [facility] where you will work with therapy to improve your strength with eventual plans to get you back to your regular residence. You are to continue taking a baby aspirin daily. You were also prescribed Plavix 75 mg daily. You are to take this for a total of 21 days which with and on 08/30/20. You were started on diltiazem CD 120 mg p.o. daily for hypertension which you are expected to continue taking. You were also started on Atorvastatin 40 mg p.o. every afternoon which you are to continue taking indefinitely. You are to follow-up with your primary care physician within 7 days. Is expected that you would have an eventual referral to neurology by her primary care physician. This was explained to you and you expressed understanding and are in agreement with the plan. Assessment: You were admitted on 08/08/20 with left-sided weakness, left facial droop and slurred speech. 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 Your symptoms improved slightly during your hospital stay but you still have significant residual left-sided weakness. You were seen by physical therapy and it was determined that you could benefit from rehabilitation. Consequently you are being discharged to [facility] where you will work with therapy to improve your strength with eventual plans to get you back to your regular residence. You are to continue taking a baby aspirin daily. You were also prescribed Plavix 75 mg daily. You are to take this for a total of 21 days which with and on 08/30/20. You were started on diltiazem CD 120 mg p.o. daily for hypertension which you are expected to continue taking. You were also started on Atorvastatin 40 mg p.o. every afternoon which you are to continue taking indefinitely. You are to follow-up with your primary care physician within 7 days. Is expected that you would have an eventual referral to neurology by her primary care physician. This was explained to you and you expressed understanding and are in agreement with the plan. - SNF / [facility] Transition Orders Admit to (Facility): [facility] Under the care of (Name): Toby Davis Discharge Diagnosis: Right CVA Acute kidney injury Hyperlipidemia Medicare Certification Statement: I certify that [facility] halfway care is medically necessary on a continuing basis for any of the conditions for which she/he is receiving care during hospitalization. Notify PCP of admission and forward orders to primary provider for signature. Weight on admission and: Daily Other Notification Orders: Call PCP immediately if patient develops dyspnea, chest pain/tightness or edema. House Bowel Program: Yes Additional Bowel Program Orders: If no BM after 2 days, nurse may give M.O.M. 30ml PO PRN and/or ducolax Supp 1 CO and/or JAMEL 250mg P.O., and/or senna 1-2 tabs PO. On day 3 nurse may give repeat above order until residents constipation is resolved. Medication Orders: PLEASE REFER TO THE DISCHARGE MEDICATION LIST. - Medications New Prescriptions: diltiaZEM CD [Cardizem Cd] 120 mg PO DAILY 30 Days #30 tab Aspirin EC [Ecotrin] 81 mg PO DAILY 30 Days #30 tablet Atorvastatin [Lipitor] 40 mg PO QPM 30 Days #30 tablet Clopidogrel [Plavix] 75 mg PO DAILY 17 Days #17 tablet - Diet Type: Geriatric Texture: Regular May have monthly special meal: Yes - Therapies | Activity Therapy: Evaluation | Treat if indicated: PT, OT Rehabilitation Potential: Maximize functional status, Return to independent living Activity: Per Therapy rec Weight Bearing: Full Weight Assistance Devices: Walker"
== END 2020-08-12 13:25 | DRG 65 ==
LOC: ED 12:18 → MS2 14:47 → OBSVTOIN 19:40
PROVIDERS: ADMIT Internal Medicine; ATTEND Internal Medicine
DX: R53.1 Weakness (principal); I63.9 Cerebral infarction, unspecified; G81.94 Hemiplegia, unspecified affecting left nondominant side; R29.810 Facial weakness; N17.9 Acute kidney failure, unspecified; Z74.09 Other reduced mobility; R47.81 Slurred speech; R29.703 NIHSS score 3; I67.82 Cerebral ischemia; E78.5 Hyperlipidemia, unspecified; I10 Essential (primary) hypertension; R77.8 Other specified abnormalities of plasma proteins; Z79.899 Other long term (current) drug therapy
CPT/HCPCS: 36415; 70496; 70498; 70551; 71045; 80048; 80053; 80061; 83036; 83690; 83735; 84484; 85025; 87631; 93005; 93306; 96374; 97110; 97116; 97161; 97166; 97530; 97535; 99284; 99285; A9270; G0378; J2060; Q9967; 0202U; 83721

== ENCOUNTER 2020-08-12 13:34 | Outpatient (CLI) | payer MEDICARE, MEDICAID | END 2020-08-12 13:35 | LOC: EMS 13:34 | PROVIDERS: ATTEND Internal Medicine | DX: Z74.01 Bed confinement status (principal) | CPT/HCPCS: A0425; A0428 ==

== ENCOUNTER 2021-05-13 08:15 | Outpatient (CLI) | payer MEDICARE, MEDICAID ==
[2021-05-13 12:42] LABS: THYROID STIMULATING HORMONE 2.07 uIU/mL (0.34-5.60)
[2021-05-13 12:44] LABS: BASOPHILS # (AUTO) 0.1 10^3/uL (0.0-0.1); BASOPHILS % (AUTO) 0.8 %; EOSINOPHILS # (AUTO) 0.6 10^3/uL (0.0-0.7); EOSINOPHILS % (AUTO) 5.1 %; HCT - HEMATOCRIT 30.3 % (37.0-47.0); HGB - HEMOGLOBIN 9.3 g/dL (12.0-16.0); LYMPHOCYTES # (AUTO) 1.4 10^3/uL (1.5-3.5); MEAN CORPUSCULAR HEMOGLOBIN 26.3 pg (27.0-31.0); MEAN CORPUSCULAR HGB CONC 30.7 g/dL (32.0-36.0); MEAN CORPUSCULAR VOLUME 85.6 fL (81.0-99.0); MEAN PLATELET VOLUME 12.4 fL (7.9-10.8); MONOCYTES # (AUTO) 0.9 10^3/uL (0.0-1.0); MONOCYTES % (AUTO) 7.4 %; NEUTROPHILS # (AUTO) 8.7 10^3/uL (1.5-6.6); NEUTROPHILS % (AUTO) 74.4 %; PLT - PLATELET COUNT 280 10^3/uL (130-450); RED BLOOD COUNT 3.54 10^6/uL (4.20-5.40); WHITE BLOOD COUNT 11.7 x10^3/uL (4.8-10.8)
[2021-05-13 13:20] LABS: ALBUMIN/GLOBULIN RATIO 1.1 (1.0-2.2); ALKALINE PHOSPHATASE 68 IU/L (42-121); ALT ALANINE AMINOTRANSFERASE 11 IU/L (10-60); AST ASPARTATE AMINOTRANSFERASE 19 IU/L (10-42); BILIRUBIN,TOTAL 0.9 mg/dL (0.2-1.0); BUN - BLOOD UREA NITROGEN 18 mg/dL (6-20); CALCIUM 9.4 mg/dL (8.5-10.3); CARBON DIOXIDE - CO2 23 mmol/L (21-32); CHLORIDE 106 mmol/L (101-111); CHOL/HDL RATIO 2.2 (<4.4); CHOLESTEROL 130 mg/dL; CREATININE 1.5 mg/dL (0.4-1.0); GFR - MDRD 34 (>89); GLUCOSE 108 mg/dL (70-100); HDL CHOLESTEROL 60 mg/dL; LDL CHOLESTEROL,CALCULATED 57 mg/dL; POTASSIUM 3.9 mmol/L (3.5-5.0); SODIUM 141 mmol/L (135-145); TOTAL PROTEIN 7.5 g/dL (6.7-8.2); TRIGLYCERIDES 64 mg/dL; VLDL CHOLESTEROL 13 mg/dL
== END 2021-05-13 08:16 | disposition home or self-care (01) ==
LOC: LAB.N 08:15
PROVIDERS: ATTEND Family Medicine
DX: I69.952 Hemiplegia and hemiparesis following unspecified cerebrovascular disease affecting left dominant side (principal); R03.0 Elevated blood-pressure reading, without diagnosis of hypertension; I70.0 Atherosclerosis of aorta; E78.5 Hyperlipidemia, unspecified
CPT/HCPCS: 36415; 80053; 80061; 83721; 84443; 85025

== ENCOUNTER 2022-03-16 13:05 | Outpatient (CLI) | payer MEDICARE, MEDICAID ==
--- NOTE | 2022-03-17 10:30 | Mammography Report ---
BILATERAL DIGITAL SCREENING MAMMOGRAM 3D/2D: 03/16/2022 CLINICAL: Family history of breast cancer. Routine screening. Comparison is made to exams dated: 07/30/2020 mammogram, 01/24/2018 mammogram, 01/28/2016 mammogram, 01/17/2014 mammogram, and 01/05/2014 mammogram - [facility]. There are scattered areas of fibroglandular density in both breasts (category b / 25%-50% glandular t issue). No significant masses, calcifications, or other findings are seen in either breast. There has been no significant interval change. No tomography was performed. IMPRESSION: NEGATIVE There is no mammographic evidence of malignancy. A 1 year screening mammogram is recommended. Based on the Tyrer Cuzick model (a risk assessment model) the patients lifetime risk is 5.1% and her 10 year risk is 0.0%. According to the ACR, ACS, and NCCN guidelines, an annual breast MRI exam meño g with mammogram is recommended if the patients lifetime risk is 20% or greater. This exam was interpreted at Station ID: [id number]. NOTE: For mammograms, a report in lay terms will be sent to the patient. Approximately 15% of breast malignancies will not be visualized mammographically. In the management of a palpable breast mass, a negative mammogram must not discourage biopsy of a clinically suspicious lesion. Electronically Signed By: Koffi Brito M.D. lc/:03/16/2022 15:59:04 ACR BI-RADS Category 1: Negative 3341F PARENCHYMAL PATTERN: (A) - The breast(s) demonstrate(s) scattered fibroglandular densities. BI-RADS CATEGORY: (1) - 1 RECOMMENDATION: (ANNUAL) - Recommend routine annual screening mammography. [id number] 1 year screening LATERALITY: (B)
== END 2022-03-16 13:06 | disposition home or self-care (01) ==
LOC: DI.N 13:05
DX: Z12.31 Encounter for screening mammogram for malignant neoplasm of breast (principal); Z80.3 Family history of malignant neoplasm of breast

== ENCOUNTER 2022-06-08 09:09 | Outpatient (CLI) | payer MEDICARE, MEDICAID ==
[2022-06-08 12:10] LABS: BASOPHILS # (AUTO) 0.1 10^3/uL (0.0-0.1); BASOPHILS % (AUTO) 1.1 %; EOSINOPHILS # (AUTO) 0.4 10^3/uL (0.0-0.7); EOSINOPHILS % (AUTO) 5.3 %; HCT - HEMATOCRIT 31.2 % (37.0-47.0); HGB - HEMOGLOBIN 9.5 g/dL (12.0-16.0); LYMPHOCYTES # (AUTO) 1.4 10^3/uL (1.5-3.5); LYMPHOCYTES % (AUTO) 17.7 %; MEAN CORPUSCULAR HEMOGLOBIN 26.2 pg (27.0-31.0); MEAN CORPUSCULAR HGB CONC 30.4 g/dL (32.0-36.0); MEAN PLATELET VOLUME 12.2 fL (7.9-10.8); MONOCYTES # (AUTO) 0.9 10^3/uL (0.0-1.0); MONOCYTES % (AUTO) 10.9 %; NEUTROPHILS # (AUTO) 5.1 10^3/uL (1.5-6.6); NEUTROPHILS % (AUTO) 64.9 %; PLT - PLATELET COUNT 293 10^3/uL (130-450); RED BLOOD COUNT 3.63 10^6/uL (4.20-5.40); RED CELL DISTRIBUTION WIDTH 15.7 % (12.0-15.0); WHITE BLOOD COUNT 7.9 x10^3/uL (4.8-10.8)
[2022-06-08 12:48] LABS: THYROID STIMULATING HORMONE 2.3 uIU/mL (0.34-5.60)
[2022-06-08 12:56] LABS: ALBUMIN 3.8 g/dL (3.2-5.5); ALKALINE PHOSPHATASE 98 IU/L (42-121); ALT ALANINE AMINOTRANSFERASE 12 IU/L (10-60); AST ASPARTATE AMINOTRANSFERASE 20 IU/L (10-42); BILIRUBIN,TOTAL 0.9 mg/dL (0.2-1.0); BUN - BLOOD UREA NITROGEN 19 mg/dL (6-20); CARBON DIOXIDE - CO2 24 mmol/L (21-32); CHLORIDE 113 mmol/L (101-111); CHOL/HDL RATIO 2.4 (<4.4); CHOLESTEROL 126 mg/dL; CREATININE 1.3 mg/dL (0.4-1.0); GFR - MDRD 39 (>89); GLUCOSE 111 mg/dL (70-100); HDL CHOLESTEROL 52 mg/dL; LDL CHOLESTEROL,CALCULATED 59 mg/dL; LDL/HDL RATIO 1.1 (<4.4); POTASSIUM 4.2 mmol/L (3.5-5.0); SODIUM 139 mmol/L (135-145); TOTAL PROTEIN 7.5 g/dL (6.7-8.2); TRIGLYCERIDES 77 mg/dL; VLDL CHOLESTEROL 15 mg/dL
== END 2022-06-08 09:10 | disposition home or self-care (01) ==
LOC: LAB.N 09:09
PROVIDERS: ATTEND Family Medicine
DX: I10 Essential (primary) hypertension (principal); I69.352 Hemiplegia and hemiparesis following cerebral infarction affecting left dominant side; M16.0 Bilateral primary osteoarthritis of hip; R53.1 Weakness; E53.8 Deficiency of other specified B group vitamins; E78.5 Hyperlipidemia, unspecified
CPT/HCPCS: 36415; 80053; 80061; 82607; 83721; 84443; 85025

== ENCOUNTER 2022-09-09 13:25 | Outpatient (CLI) | payer MEDICARE, MEDICAID | END 2022-09-09 23:59 | disposition EMS.NT | LOC: EMS 13:25 | DX: Z03.89 Encounter for observation for other suspected diseases and conditions ruled out (principal) ==

== ENCOUNTER 2023-03-18 10:17 | Outpatient (CLI) | payer MEDICARE, MEDICAID ==
--- NOTE | 2023-03-19 11:34 | Mammography Report ---
BILATERAL DIGITAL SCREENING MAMMOGRAM: 03/18/2023 CLINICAL: Routine screening. Family history of breast cancer. Comparison is made to exams dated: 03/16/2022 mammogram, 07/30/2020 mammogram, and 01/24/2018 mammogram - [facility]. There are scattered areas of fibroglandular density in both breasts (category b / 25%-50% glandular t issue). No significant masses, calcifications, or other findings are seen in either breast. There has been no significant interval change. IMPRESSION: NEGATIVE There is no mammographic evidence of malignancy. A 1 year screening mammogram is recommended. Based on the Tyrer Cuzick model (a risk assessment model) the patients lifetime risk is 4.3% and her 10 year risk is 0.0%. According to the ACR, ACS, and NCCN guidelines, an annual breast MRI exam meño g with mammogram is recommended if the patients lifetime risk is 20% or greater. This exam was interpreted at Station ID: [id number]. NOTE: For mammograms, a report in lay terms will be sent to the patient. Approximately 15% of breast malignancies will not be visualized mammographically. In the management of a palpable breast mass, a negative mammogram must not discourage biopsy of a clinically suspicious lesion. Electronically Signed By: Horace cruz/raji:03/18/2023 11:57:15 letter sent: No_Letter ACR BI-RADS Category 1: Negative 3341F PARENCHYMAL PATTERN: (A) - The breast(s) demonstrate(s) scattered fibroglandular densities. BI-RADS CATEGORY: (1) - 1 Mammogram [id number] 1 year screening LATERALITY: (B)
== END 2023-03-18 10:18 | disposition home or self-care (01) ==
LOC: DI.N 10:17
DX: Z12.31 Encounter for screening mammogram for malignant neoplasm of breast (principal); Z80.3 Family history of malignant neoplasm of breast; R92.323 Mammographic fibroglandular density, bilateral breasts

== ENCOUNTER 2023-04-27 08:00 | Outpatient (CLI) | payer MEDICARE, MEDICAID | END 2023-04-27 08:01 | disposition home or self-care (01) | LOC: LAB.N 08:00 | PROVIDERS: ATTEND Physician Assistant | DX: J06.9 Acute upper respiratory infection, unspecified (principal) ==

== ENCOUNTER 2023-07-20 11:00 | Outpatient (CLI) | payer MEDICARE, MEDICAID ==
[2023-07-20 11:17] LABS: BASOPHILS # (AUTO) 0.1 10^3/uL (0.0-0.1); BASOPHILS % (AUTO) 1.1 %; EOSINOPHILS # (AUTO) 0.3 10^3/uL (0.0-0.7); EOSINOPHILS % (AUTO) 3.2 %; HCT - HEMATOCRIT 33.3 % (37.0-47.0); HGB - HEMOGLOBIN 9.8 g/dL (12.0-16.0); LYMPHOCYTES # (AUTO) 1.4 10^3/uL (1.5-3.5); LYMPHOCYTES % (AUTO) 16.6 %; MEAN CORPUSCULAR HEMOGLOBIN 24.5 pg (27.0-31.0); MEAN CORPUSCULAR HGB CONC 29.4 g/dL (32.0-36.0); MEAN CORPUSCULAR VOLUME 83.3 fL (81.0-99.0); MEAN PLATELET VOLUME 11.4 fL (7.9-10.8); MONOCYTES # (AUTO) 0.7 10^3/uL (0.0-1.0); MONOCYTES % (AUTO) 8.5 %; NEUTROPHILS # (AUTO) 5.7 10^3/uL (1.5-6.6); NEUTROPHILS % (AUTO) 70.4 %; PLT - PLATELET COUNT 268 10^3/uL (130-450); RED CELL DISTRIBUTION WIDTH 16.5 % (12.0-15.0); WHITE BLOOD COUNT 8.1 x10^3/uL (4.8-10.8)
[2023-07-20 11:31] LABS: ALBUMIN 3.9 g/dL (3.2-5.5); ALBUMIN/GLOBULIN RATIO 1.3 (1.0-2.2); ALKALINE PHOSPHATASE 105 IU/L (42-121); ALT ALANINE AMINOTRANSFERASE 9 IU/L (10-60); AST ASPARTATE AMINOTRANSFERASE 14 IU/L (10-42); BILIRUBIN,TOTAL 0.7 mg/dL (0.2-1.0); BUN - BLOOD UREA NITROGEN 16 mg/dL (6-20); CALCIUM 9.4 mg/dL (8.5-10.3); CARBON DIOXIDE - CO2 25 mmol/L (21-32); CHLORIDE 109 mmol/L (101-111); CHOL/HDL RATIO 2.5 (<4.4); CHOLESTEROL 121 mg/dL; CREATININE 1.2 mg/dL (0.6-1.3); GFR - MDRD 43 (>89); GLUCOSE 95 mg/dL (74-104); HDL CHOLESTEROL 49 mg/dL; LDL CHOLESTEROL,CALCULATED 56 mg/dL; LDL/HDL RATIO 1.1 (<4.4); POTASSIUM 4.2 mmol/L (3.5-4.5); SODIUM 139 mmol/L (135-145); TRIGLYCERIDES 79 mg/dL (48-352); VLDL CHOLESTEROL 16 mg/dL
[2023-07-20 11:46] LABS: THYROID STIMULATING HORMONE 1.97 uIU/mL (0.34-5.60)
== END 2023-07-20 11:01 | disposition home or self-care (01) ==
LOC: LAB 11:00
PROVIDERS: ATTEND Family Medicine
DX: E78.5 Hyperlipidemia, unspecified (principal); I69.354 Hemiplegia and hemiparesis following cerebral infarction affecting left non-dominant side; K59.00 Constipation, unspecified; I34.0 Nonrheumatic mitral (valve) insufficiency; E53.8 Deficiency of other specified B group vitamins; I70.0 Atherosclerosis of aorta
CPT/HCPCS: 36415; 80053; 80061; 82607; 83721; 84443; 85025